=== PATIENT | female | born 1955 | race Caucasian/White ===

== ENCOUNTER → 2017-08-02 | Outpatient (CLI) | payer BC | END | disposition home or self-care (01) | LOC: RESCLI 02:30 | DX: F41.9 Anxiety disorder, unspecified (principal); E78.5 Hyperlipidemia, unspecified; E55.9 Vitamin D deficiency, unspecified; Z72.0 Tobacco use; Z71.6 Tobacco abuse counseling ==

== ENCOUNTER → 2017-08-30 | Outpatient (CLI) | payer BC | END | disposition home or self-care (01) | LOC: MAMMO 01:37 | DX: Z12.31 Encounter for screening mammogram for malignant neoplasm of breast (principal) ==

== ENCOUNTER → 2018-10-04 | Outpatient (CLI) | payer BC ==
[2018-10-04 17:00] LABS: ALBUMIN 3.8 gm/dl (3.1-4.5); ALKALINE PHOSPHATASE 117 U/L (45-117); BUN 12 mg/dl (7-24); CHLORIDE 106 mmol/L (98-107); CHOLESTEROL 235 mg/dL (<200); CREATININE 0.77 mg/dL (0.55-1.02); HDL CHOLESTEROL 36 mg/dl (40-60); LDL CHOLESTEROL 163 mg/dL (9-159); POTASSIUM 4.2 mmol/L (3.5-5.1); SGOT/AST 24 IU/L (3-35); SGPT/ALT 35 U/L (12-78); SODIUM 140 mmol/L (136-145); TOTAL PROTEIN 7.7 gm/dL (6.4-8.2); TRIGLYCERIDES 178 mg/dl (<150); VLDL CHOLESTEROL 36 mg/dL (6-40)
== END | disposition home or self-care (01) ==
LOC: LAB 15:54
PROVIDERS: Family Medicine
DX: E78.5 Hyperlipidemia, unspecified (principal); E55.9 Vitamin D deficiency, unspecified

== ENCOUNTER 2018-12-21 14:41 | Inpatient (IN) | payer BC, MEDICARE ==
[2018-12-21] VITALS (17 sets, daily range): BP systolic 70–102; BP diastolic 0–64
[~2018-12-21] VITALS: Ht 165.1 cm; Wt 59.4 kg
--- NOTE | ~2018-12-21 | EKG ---
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
--- NOTE | ~2018-12-21 | PR ---
[place], [place] PROGRESS NOTE NAME: LAURYN SOLITARIO UNIT #: [id number] ROOM: [facility] DOCTOR: SAROJ HERNANDEZ MD,[place] BIRTHDATE: [birth year] DOS: 12/26/2018 SUBJECTIVE: The patient remains on the mechanical ventilator at this time, continued on all of the previous setting of mechanical ventilator with no changes. The patient is continued on NG tube, which is placed on hold for bronchoscopy planned to be done today in the surgery. The patient has been noted with increase of creatinine at this time. The patient has been given diuretics. The patient has not been noted any symptoms of fever or chills. She was successfully intubated and started on mechanical ventilation. Mild hypertension was noted, which was corrected with use of fluid and other intervention. The temperature of the patient has been noted to be in normal range. She has been receiving broad-spectrum intravenous antibiotic including antiviral therapy. OBJECTIVE: VITAL SIGNS: Blood pressure of 120/62 to 105/62. The respiratory rate was recorded as 32-18. Heart rate of 80-90. Intake 700 mL, output 1600 mL, negative 900 mL. The pulse oxygen saturation was recorded as 99% saturation on 35% oxygen, which was gradually decreased after intubation from 60% to 35% with change in mechanical ventilation. HEENT: Currently, the patient is intubated. Head was atraumatic. Eyes nonicterus. NECK: Supple. CARDIOVASCULAR: S1 and S2 audible. LUNGS: The patient was noted without any wheezing. Scattered crackles of the lungs. ABDOMEN: Soft, nontender. Bowel sounds present. EXTREMITIES: Noted without any acute edema. MUSCULOSKELETAL: The patient was noted without any acute deformities. CENTRAL NERVOUS SYSTEM: Cranial nerves for the patient cannot be examined. Mental status with sedation vacation. LABORATORY AND DIAGNOSTIC DATA: Urine for Legionella antigen reported as positive this morning, which was sent on 12/21/2018. CBC that was done on 12/26/2018, WBC 12.8, hemoglobin 9.5, hematocrit 28.3, platelet count 277,000. Arterial blood gas this morning on 35% oxygen, pH of 7.47, pCO2 38, pO2 83. CMP this morning, creatinine is elevated at 1.72, BUN 27, potassium of 2.9. AST was noted abnormal, ALT normal, alkaline phosphatase 150. CBC this morning, WBC count 12.8, hemoglobin 9.5, hematocrit 28.3, platelet count normal. Phosphorus level was noted 3.0 today. The chest x-ray that was done this morning was reviewed. Bilateral diffuse pulmonary infiltration noted. Endotracheal tube is in proper position. NG tube is in the stomach. Infiltration appeared to be interstitial, more at this time. Multi-lumen catheter is in place. IMPRESSION: 1. The patient with continued acute pneumonia, which could be considered at this time as Legionella pneumonia. 2. Acute kidney injury secondary to intravascular volume depletion and hypotension with diuretics. 3. The patient with abnormal LFTs related to Legionella infection. [place], [place] PROGRESS NOTE NAME: LAURYN SOLITARIO UNIT #: [id number] ROOM: [facility] DOCTOR: SAROJ HERNANDEZ MD,[place] BIRTHDATE: [birth year] 4. Severe acute hypoxemic respiratory failure secondary to acute pneumonia. 6. Consideration for protein-calorie malnutrition. PLAN OF MANAGEMENT: The patient will be continued primarily on Levaquin at this time. Discontinue all the antibiotics including antiviral therapy. Monitor kidney function closely. Hypotension is managed with use of norepinephrine and intravenous fluid will be also given. Bronchodilator with other treatment therapy and plan of management as well. Supportive therapy, plan of management, other care plan, and additional treatment changes will be made based on progression of the illness. Proceed with fiberoptic bronchoscopy as planned. Usual care. Total time in pulmonary critical evaluation and management was 38 minutes. ENRICO KYLE MD CM:PNTRANS [phone] ENRICO HERNANDEZ MD 12/27/18 0158 interface
--- NOTE | ~2018-12-21 | PR ---
[place], [place] PROGRESS NOTE NAME: LAURYN SOLITARIO UNIT #: [id number] ROOM: 529 DOCTOR: SAROJ HERNANDEZ MD,[place] BIRTHDATE: [birth year] DOS: 01/02/2019 PULMONARY PROGRESS NOTE SUBJECTIVE: The patient continued to do very well for the current medical management. Transfer to telemetry floor from the intensive care unit. The cough has been noted [id number] with small amount of sputum expectoration. There were no symptoms of chest pain. The weakness and fatigue has been noted gradually decreased. Denies any symptoms of chest pain, fever or chills. The patient has been noted with good appetite. Denies symptoms of headache or diplopia. Denies symptoms of nausea, vomiting, diarrhea, or abdominal pain. Denies any symptoms of hematemesis or melena. The remaining systems were reviewed. They were noted all negative. OBJECTIVE: VITAL SIGNS: For the patient, which have recorded as a normal temperature, respiratory rate 20, heart rate 87, blood pressure 134/52-113/47. The pulse oxygen saturation recorded as 98% saturation on 2 liters nasal cannula. HEENT: Examination shows head was atraumatic. Eyes nonicterus. NECK: Supple. CARDIOVASCULAR: S1, S2 audible. LUNGS: Noted to have crackles mainly noted in the lower lung base. There was no wheezing. ABDOMEN: Soft, nontender. Bowel sounds present. EXTREMITIES: Noted without any acute edema. MUSCULOSKELETAL: Noted without any acute deformities. CENTRAL NERVOUS SYSTEM: Cranial nerves 2-12 intact. LABORATORY DATA: CMP that was done this morning, BUN 44, creatinine 2.63. Albumin 2.1. CBC that was done on 01/02/2019, WBC count 12.5, hemoglobin 8.1, hematocrit 26.1, and platelet count was normal. The chest x-ray that was done this morning was reviewed shows continued improving in aeration of the lungs and consolidation in the lungs, especially in the right lower lobe. Very small pleural fluid noted at the present time. Mild increased pulmonary venous congestion marking was noted. The patient had ultrasound of the kidney also performed on01/02/2019 that has reported a benign cyst in the left kidney. There was no hydronephrosis or other acute abnormalities. IMPRESSION: 1. The patient has been currently noted resolving acute Legionella pneumonia. 2. Acute small bilateral pleural fluid secondary to current acute injury. 3. Severe debility, still persisted, but improving gradually. 4. Resolution of abnormal LFTs, related acute Legionnaires' disease. 5. Acute kidney injury seemed to be stabilizing at the present time. PLAN OF MANAGEMENT: Physical therapy, occupation therapy, oxygen supplementation. Monitor kidney functions. Upon clearance for the kidney function stability the patient could be assessed for home discharge with oxygen supplementation. Pleural fluid noted with a small, but not require any acute intervention at this time and should resolve with improvement in kidney injury [place], [place] PROGRESS NOTE NAME: LAURYN SOLITARIO UNIT #: [id number] ROOM: 529 DOCTOR: SAROJ HERNANDEZ MD,[place] BIRTHDATE: [birth year] illness. ENRICO KYLE MD CM:PNTRANS [phone] ENRICO HERNANDEZ MD 01/15/19 0841 interface
--- NOTE | ~2018-12-21 | PR ---
[place], [place] PROGRESS NOTE NAME: LAURYN SOLITARIO UNIT #: [id number] ROOM: 529 DOCTOR: SAROJ HERNANDEZ MD,[place] BIRTHDATE: [birth year] DOS: 12/31/2018 PULMONARY PROGRESS NOTE SUBJECTIVE: The patient is noted comfortable at this time, resting on the bed, noted wit much more improvement in the overall respiratory status and mental status. She has not been reported with symptoms of fever, chills, or chest pain. Denies symptoms of nausea, vomiting, or diarrhea. She has been using the BiPAP as ordered this morning, using oxygen supplementation 4 liters nasal cannula. The remaining system review noted all negative. OBJECTIVE: VITAL SIGNS: Temperature normal, respiratory rate of 14, heart rate 90, blood pressure 107/59. The heart rate initially noted as 105, currently noted as 90. The pulse oxygen saturation recorded on 4 liters nasal cannula as 96% saturation. Intake of 1150, and output 1250 mL. HEENT: Examination shows head is atraumatic. Eyes nonicterus. NECK: Supple. CARDIOVASCULAR: S1 and S2 audible. LUNGS: Noted with mild scattered expiratory crackles. There is no wheezing. ABDOMEN: Soft, nontender. Bowel sounds are present. EXTREMITIES: No acute edema. MUSCULOSKELETAL: Without acute deformities. CENTRAL NERVOUS SYSTEM: Intact. LABORATORY DATA: CMP this morning: BUN 51, creatinine 2.60. Remaining electrolytes are normal. Albumin is 2.0. CBC that was done this morning - normal WBC count, hemoglobin 8, hematocrit 24.2, and platelet count of 240,000. IMPRESSION: The patient who has been currently noted with: 1. Resolving acute Legionella pneumonia. 2. Abnormal LFTs, secondary to Legionella pneumonia. 3. Improving mental status. 4. Resolving acute/severe hypoxic respiratory failure as well progressively. 5. The patient with protein-calorie malnutrition status as well with hypoalbuminemia. 6. Overall severe debility, secondary to current acute illness. PLAN OF MANAGEMENT: Continuation of current plan of management, antibiotics, bronchodilators, oxygen supplementation. BiPAP could be used p.r.n., oxygen supplementation to continue to maintain pulse ox 92% or greater. Other supportive therapy plan of management. Additional treatment changes will be made based on progression of the illness. Physical therapy could be assessed. [place], [place] PROGRESS NOTE NAME: LAURYN SOLITARIO UNIT #: [id number] ROOM: 529 DOCTOR: ENRICO PHAN MD BIRTHDATE: [birth year] ENRICO KYLE MD CM:PNANDIE [phone] ENRICO HERNANDEZ MD 01/15/19 0839 interface
--- NOTE | ~2018-12-21 | PROC NOTE ---
[place], [place] PROCEDURE NOTE NAME: LAURYN SOLITARIO UNIT #: [id number] ROOM: 529 DOCTOR: SAROJ HERNANDEZ MD,[place] BIRTHDATE: [birth year] DOS: 12/26/2018 BRONCHOSCOPY PREOPERATIVE DIAGNOSIS: Bilateral pulmonary infiltration. POSTOPERATIVE DIAGNOSES: Removal of the moderate amount of mucoid secretion with some bilious secretion from the endobronchial tree subsegments bilaterally. Low riding endotracheal tube was also noted. The endotracheal tube was corrected. PROCEDURE DESCRIPTION: Informed consent obtained from the patient's family members. The patient with continuous sedation. The patient was given general anesthesia for the procedure. The video fiberoptic bronchoscopy advanced into the endotracheal tube, lower part of trachea, which was at the priscilla level. It was adjusted. Right upper, right middle, right lower, left upper, lingular lobe bronchi were noted. Moderate amount of mucoid secretion noted with some purulent secretions suctioned out at priscilla level bilaterally. No endobronchial obstructive lesions. Procedure well tolerated by the patient without any difficulty. Postoperative findings were discussed with the patient's in detail. No changes in the treatment at this time would be necessary. ENRICO KYLE MD CM:PROCNOTE:PROCEDURE NOTE [phone] ENRICO HERNANDEZ MD
--- NOTE | ~2018-12-21 | PR ---
[place], [place] PROGRESS NOTE NAME: LAURYN SOLITARIO UNIT #: [id number] ROOM: [facility] DOCTOR: SAROJ HERNANDEZ MD,[place] BIRTHDATE: [birth year] DOS: 12/27/2018 PULMONARY CRITICAL CARE EVALUATION AND MANAGEMENT SUBJECTIVE: The patient may need mechanical ventilator, had bronchoscopy done yesterday. She has not been noted any acute hemodynamic instability at this time, remains on the mechanical ventilator. The patient has been currently treated for acute Legionella pneumonia. She had developed acute kidney injury due to diuretic, which were discontinued yesterday. She has been noted with acute hemodynamic instability at this time. Mechanical ventilator setting for the patient essentially remains unchanged as well. OBJECTIVE: VITAL SIGNS: For the patient which were recorded showed normal temperature, respiratory rate of 34. Still noted tachypnea at time. Heart rate of 91-90. The blood pressure of 105/61-112/68. Pulse oxygen saturation recorded as 100% on 35% oxygen. HEENT: Examination shows head was atraumatic. Eyes nonicterus. NECK: Supple. The patient remained orally intubated. NG tube is in place. CARDIOVASCULAR: S1, S2 is audible. LUNGS: The patient was noted with moderate decreased breath sounds. There was no wheezing or crackles at the present time. ABDOMEN: Soft, flat, nontender, bowel sounds present. EXTREMITIES: No edema. MUSCULOSKELETAL: Without acute deformities. SKIN: Visible skin, no lesions or rashes. CENTRAL NERVOUS SYSTEM: The patient without any gross focal neurologic deficit and mental status of the patient was noted normal with reduction of sedation. LABORATORY DATA: CBC: WBC count 9.4. Hemoglobin of 9.0, hematocrit 27.5, platelet count 262,000. Urine for Legionella antigen was noted positive yesterday. Arterial blood gas this morning, assist control, volume control, 35% oxygen, pH of 7.40, pCO2 of 41, pO2 of 99.4. Cultures of the endotracheal aspirate of the patient was noted as normal erik preliminary final cultures are pending. Gram stain, moderate white blood cell, few epithelial cells, no microorganisms. Respiratory virus panel was noted as negative limited testing from 12/22/2018, which were taken. Urinalysis noted as random sodium of 18. Blood cultures, no bacterial growth. Chest x-ray that was done this morning shows endotracheal tube was in place. Multilumen catheter in place. Improvement in aeration of the lungs was continued. BMP this morning as BUN 37, creatinine 2.16. Glucose 119. Phosphorus of 5.0. CBC of the patient this morning, WBC count of 9.4, hemoglobin 9, hematocrit 27.5, platelet count 262,000. IMPRESSION: 1. Acute respiratory failure. The patient with acute Legionella pneumonia, respiratory failure noted acute hypoxemic respiratory failure secondary to pneumonia. 2. Fluid overload, resolved. 3. The patient with acute kidney injury secondary to intravascular volume [place], [place] PROGRESS NOTE NAME: LAURYN SOLITARIO UNIT #: [id number] ROOM: [facility] DOCTOR: SAROJ HERNANDEZ MD,[place] BIRTHDATE: [birth year] depletion possibility of acute tubular necrosis or interstitial nephritis has been considered at this time. 4. Tachypnea was still noted intermittently. 5. Hyperphosphatemia is related to the potassium, phosphorus supplementation and acute kidney injury combination. PLAN OF MANAGEMENT: Titrate oxygen supplementation, maintain pulse ox 92% or greater. Continue on ventilator bundle management. Adjust the antibiotic according to kidney function with the Levaquin for this patient's current acute kidney injury. Monitor acute kidney injury closely. The urinary output was noted as adequate 1500 mL in the last 24 hours. Nonoliguric renal failure noted. Continue sedation intravenous Diprivan and Versed. Today, the patient was not noted to be a candidate may be assessed tomorrow for the weaning depending on further order stability of ongoing multiple medical problems including respiratory failure and pneumonia. Total time in Pulmonary and Critical Care Evaluation management was 34 minutes. ENRICO KYLE MD CM:PNTRANS [phone] ENRICO HERNANDEZ MD 12/27/18 1950 interface
--- NOTE | ~2018-12-21 | PR ---
[place], [place] PROGRESS NOTE NAME: LAURYN SOLITARIO UNIT #: [id number] ROOM: 529 DOCTOR: ENRICO PHAN MD BIRTHDATE: [birth year] DOS: 01/03/2019 PULMONARY PROGRESS NOTE SUBJECTIVE: The patient is noted comfortable at this time, resting on the bed, not noted any use of oxygen. There were no symptoms of chest pain, fever or chills. There were no symptoms of significant cough. OBJECTIVE: VITAL SIGNS: Normal temperature, respiratory rate 20, heart rate 91, blood pressure 110/50. The pulse oxygen saturation was recorded as 96% saturation on 2 liters. HEENT: Shows head was atraumatic, eyes nonicterus. NECK: Supple. CARDIOVASCULAR: S1 and S2 audible. LUNGS: Decreased breath sounds. Crackles were noted coarse in both portion of the lungs. ABDOMEN: Soft, nontender, bowel sounds present. LABORATORY DATA: BMP today, BUN 42, creatinine 2.60. CBC: Normal WBC count, hemoglobin 8.4, normal platelet count. IMPRESSION: 1. The patient with bilateral pleural fluid with resolving acute Legionella pneumonia infiltration and some pleural fluid noted yesterday on chest x-ray. 2. Resolution of acute severe hypoxemic respiratory failure, progressive with acute Legionella pneumonia. 3. Acute kidney injury. PLAN OF TREATMENT: The patient was recommended home discharge if clearance will be obtained from the Nephrology Services standpoint. The patient was suggested postdischarge to reassess. Antibiotic per Infectious Disease Services recommendation. [place], [place] PROGRESS NOTE NAME: LAURYN SOLITARIO UNIT #: [id number] ROOM: 529 DOCTOR: ENRICO PHAN MD BIRTHDATE: [birth year] ENRICO KYLE MD CM:PNTRANS [phone] ENRICO HERNANDEZ MD 01/04/19 0136 interface
--- NOTE | ~2018-12-21 | CON ---
[place], [place] REPORT OF CONSULTATION NAME: LAURYN SOLITARIO UNIT #: [id number] ROOM: 529 DOCTOR: SAROJ HERNANDEZ MDENRICO BIRTHDATE: [birth year] DOS: 12/23/2018 PULMONARY CRITICAL CARE EVALUATION, MANAGEMENT AND CONSULTATION REASON FOR CONSULTATION: Acute respiratory failure with acute pneumonia. HISTORY OF PRESENT ILLNESS: A 63-year-old white female patient, unable to give me history accurately with current use of BiPAP. The history was obtained significantly from the patient's . The patient's stated they have been traveling from [place]. They came home last Tuesday. The patient started with GI symptoms as they were staying in [place]. She has been reported symptoms of headache, vomiting, and diarrhea. The symptoms were noted gradually worsening. Later, as the patient came home, she developed symptoms of increased coughing, shortness of breath and temperature up to 102 degrees Fahrenheit at home. The symptoms were noted progressively worsening, requiring assessment in the Emergency Room. The patient has been assessed in the Emergency Room and further investigations were done. The patient was diagnosed with acute pneumonia. She also was noted with hypotension with sepsis, which has been treated with 8 liters of fluid so far and vasopressor therapy was also given. The vasopressor therapy has been decreased, was continued on 1 mcg/kg body weight from yesterday evening. This morning, the patient appeared to be awake. She was noted with increased oxygen requirement with chest congestion. Has been ordered Lasix 40 mg today resulting in marked diuresis in the last couple of hours. The patient's respiratory status after initial improvement per was noted worse. Temperature curve was noted up to 103 degree Fahrenheit, currently noted at 99.8 degrees Fahrenheit. REVIEW OF SYSTEMS: CONSTITUTIONAL: Limited; however, the patient reported symptoms of fatigue, tiredness, symptoms of fever and chills. EYES: Denies any burning, redness, or tenderness. EARS, NOSE, AND THROAT SYMPTOMS: Denies sore throat, hoarseness, otalgia, postnasal drainage or epistaxis. CARDIOVASCULAR: Denies anginal pain, edema, or pain of the lower extremities. GASTROINTESTINAL: Symptoms of nausea and vomiting resolved. There were no symptoms of hematemesis, melena, or hematochezia reported. There were no symptoms of dysphagia. Abnormal weight loss history is stated. GENITOURINARY: Denies dysuria, suprapubic pain, or hematuria. MUSCULOSKELETAL: Denies acute joint pain, redness, tenderness or any deformities. SKIN: No lesions or rashes reported. CENTRAL NERVOUS SYSTEM: General weakness, but there were no focal deficits. Remaining systems were reviewed, they were noted all negative. PAST MEDICAL HISTORY: Reported as: 1. Hyperlipidemia. 2. Chronic heavy nicotine dependence with tobacco cessation in October 2018. 3. History of neurotic depression. 4. Vitamin D deficiency. 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 Tobacco use noted since teenager as one pack of cigarettes per day minimum per with tobacco cessation in October 2018. HOME MEDICATIONS: Listed as: 1. Lipitor 80 mg daily. 2. Prozac 40 mg daily. 3. Vitamin D 50,000 international units daily. CURRENT MEDICATIONS: The current medications which were administered were use of vitamin D, DuoNeb, fluoxetine, Lipitor, Mucinex, Levaquin, vancomycin, IV Rocephin 2 gm daily, and Tamiflu as well. ALLERGIES: No known drug allergies. PHYSICAL EXAMINATION: GENERAL: A 63-year-old female patient, currently noted on BiPAP. Height of 5 feet 5 inches, weight 131 pounds. The BMI patient was noted at 21.7. VITAL SIGNS: T-max up to 103 degrees Fahrenheit, currently noted 99.2 degrees Fahrenheit. Respiratory rate 22-24, heart rate of 89-84, blood pressure 116/65 to 149/74. Pulse oxygen saturation was recorded as 98% saturation on 50%, previously noted on 2 liters nasal cannula at 94% saturation. HEENT: Head was atraumatic. Eyes nonicterus. NECK: Supple. CARDIOVASCULAR: S1 and S2 were audible. LUNGS: Noted scattered crackles of the lungs, especially in the lower lungs noted. There was no wheezing heard. ABDOMEN: Soft, flat, nontender. Bowel sounds present. EXTREMITIES: The patient was noted with mild edema. VISIBLE SKIN: No lesions or rashes. MUSCULOSKELETAL: The patient was noted without any acute deformities. CENTRAL NERVOUS SYSTEM: The patient in general appears to be intact. LABORATORY DATA: CBC on 12/21/2018, WBC count 16.9, hemoglobin and hematocrit normal, platelet count was normal on admission. PT/PTT on admission was normal on 12/21/2018. BUN and creatinine were normal, sodium 128, potassium 3.4, chloride 98. Influenza B nasal washing antigen molecular testing was negative. Troponin 3 sets on 12/21/[address] scan of the head that was done without contrast was reported without any acute intracranial abnormalities. Serum osmolality was noted mildly decreased at 274. The blood culture which was done on 12/21/2018 so far showed no bacterial growth, final culture results are pending. Lactic acid was noted as normal. CBC of this morning, WBC count 15.3, hemoglobin 10.5, platelet count was normal. CMP that was done this morning, BUN 6, creatinine was normal, potassium 3.3, CO2 of 19, albumin of 1.8. Anion gap was noted as 17 on today's findings. Arterial blood gas that was done yesterday, pH of 7.41, pCO2 25, pO2 67 on 40% oxygen, shows severe hypoxemia and well compensated metabolic acidosis. Arterial blood gas this morning on 50% oxygen BiPAP, pH 7.37, pCO2 20, pO2 57. Arterial blood gas showed continued [place], [place] REPORT OF CONSULTATION NAME: LAURYN SOLITARIO UNIT #: [id number] ROOM: 529 DOCTOR: SAROJ HERNANDEZ MD,[facility] BIRTHDATE: [birth year] compensation of metabolic acidosis with severe hypoxemia. RADIOLOGY DATA: The radiology data was also reviewed. The chest x-ray that was done shows a mass-like lesion and consolidation in the right lower lobe. Chest x-ray that was done later on with multi-lumen catheter shows interval development of small pleural fluid. Chest x-ray that was done yesterday shows persistent changes in the lungs with hyperinflation. The chest x-ray this morning shows increased pulmonary venous congestion marking also noted with worsening of the consolidative changes and other abnormalities in the right lower lobe in addition with pleural fluid and infiltration in the right lower lobe would be also considered. IMPRESSION: 1. The patient has been currently admitted to the hospital, noted with acute symptoms of GI tract with hyponatremia. Related to bradycardia with acute pneumonia with differential would be considered. Legionella pneumonia is one of the differential diagnoses. The etiology is certainly to be considered viral and other community-acquired pneumonia. 2. The patient with acute progressive respiratory failure with pulmonary filtration and fluid overload. 3. Persistent metabolic acidosis, most likely related to the current acute sepsis. 4. The patient with suspicion of chronic obstructive pulmonary disease with history of chronic nicotine dependence as well. 5. Rule out any mass lesion in the lower lungs. PLAN OF MANAGEMENT: The patient will be continued on the current antibiotic as ordered including coverage for Legionella pneumonia and viral etiology with influenza infection. Monitor culture results. CT scan of the chest will be ordered for further clear assessment of the extent of pneumonia. Diuresis is to be given and continue to avoid any further use of fluids to prevent fluid overload. Bronchodilators to help mobilize secretion as q.i.d. use of nebulized bronchodilators. Supportive therapy, plan of management, and other care plan as well. In case of worsening of the respiratory status, intubation and mechanical ventilation would be considered. The assessment and management have been discussed with the patient's in detail. We will follow up electrolytes and arterial blood gases with intermittent assessment. Total time for the pulmonary critical care, evaluation, and management was 40 minutes. [place], [place] REPORT OF CONSULTATION NAME: LAURYN SOLITARIO UNIT #: [id number] ROOM: 529 DOCTOR: ENRICO PHAN MD BIRTHDATE: [birth year] ENRICO YKLE MD CM:CONSTR:REPORT OF CONSULTATION [id number] 01/15/19 0823 interface
--- NOTE | ~2018-12-21 | PR ---
[place], [place] PROGRESS NOTE NAME: LAURYN SOLITARIO UNIT #: [id number] ROOM: 529 DOCTOR: SAROJ HERNANDEZ MD,ENRICO BIRTHDATE: [birth year] DOS: 12/24/2018 PULMONARY CRITICAL CARE EVALUATION AND MANAGEMENT SUBJECTIVE: The patient remains in the hospital in the Intensive Care Unit. She remains mostly dependent on BiPAP with removal of the BiPAP to give some oral medications. She was noted with oxygen desaturation to 75%. She has been noted to undergo diuresis yesterday with the use of intravenous Lasix. She has a chest x-ray done this morning and has been ordered additional Lasix at 40 mg this morning and then daily dose as well. The patient has not been reported any symptoms of chest pain. She has been noted mentally awake, follow vocal commands and extremely nervous. She has not been reporting any symptoms of abdominal pain. She has not been noted any symptoms of diarrhea. No symptoms of abdominal pain, hematemesis or melena reported. She denies symptoms of headache or diplopia. Remaining systems were reviewed and noted as negative. PHYSICAL EXAMINATION: VITAL SIGNS: Temperature noted at 101.3 degrees Fahrenheit, rectal temperature, to normal temperature intermittently in the last 24 hours, the temperature was noted yesterday at about 10 p.m. The other vital signs, respiratory rate is between 22-36, heart rate of 99-118, mild sinus tachycardia, blood pressure 100/68 to 138/77, did not require any vasopressors. Intake 23 liters, output 36 and negative fluid balance of 1.31 liters. Pulse oxygen saturation on 65% of BiPAP is 99-95% saturation at the bedside recorded. HEENT: Currently, the patient has BiPAP in place. Head was atraumatic. NECK: Supple. CARDIOVASCULAR: S1 and S2 audible. LUNGS: General reduction in breath sounds. Scattered crackles. There was no wheezing heard. ABDOMEN: Soft, nontender. Bowel sounds are present. EXTREMITIES: The patient was noted with mild edema. VISIBLE SKIN: No lesions or rashes. CENTRAL NERVOUS SYSTEM: Appeared the patient understanding the questions. There were no focal deficits. MUSCULOSKELETAL: Without any acute deformities. DIAGNOSTIC DATA: CBC in the labs today, WBC count 19,000, hemoglobin 10.2, platelet count was normal. Urine culture was noted with no bacterial growth. Arterial blood gas this morning, pH of 7.44, pCO2 30, pO2 56 on 50% oxygen with BiPAP 14/10. The vancomycin trough level was noted 11.1, which is in the low therapeutic range. CMP of the patient this morning, BUN normal, creatinine was normal, potassium mildly decreased at 3.3, phosphorus 2.3, was also noted mildly low, albumin 1.8, total protein of 5.6, AST of 57. CT scan of the chest that was completed yesterday was personally reviewed, shows evidence of large area of consolidation in the lower lungs bilaterally, also involvement of patchy infiltration in other parts of the lung with bilateral pleural effusions and air bronchogram noted. At this time, the finding in the right lower lobe, which was noted on chest x-ray, would be considered pneumonia, other resolution to be monitored to exclude any malignant process or other etiologies. Scattered ground glass opacity noted in the lungs as well. A small lymph node was noted [place], [place] PROGRESS NOTE NAME: LAURYN SOLITAROI UNIT #: [id number] ROOM: 529 DOCTOR: SAROJ HERNANDEZ MD,[facility] BIRTHDATE: [birth year] in the mediastinum. Chest x-ray that was done this morning was reviewed, shows findings of interstitial edema with congestive heart failure, multi-lumen catheter remains in place to the right internal jugular vein in appropriate position. IMPRESSION: 1. The patient has been noted with multilobar pneumonia, currently treated with broad-spectrum intravenous antibiotic, consideration for gram-positive infection or gram-negative infection as well. 2. Possibility of fluid overload with bilateral pleural fluid. 3. The patient with severe acute hypoxemic respiratory failure as well as a result of the pneumonia. 4. The patient with leukocytosis related to current acute infection as well. So far, all the cultures which have been sent, the blood culture from 12/21/2018 reported no bacterial growth. Urine legionella antigen and strep antigen sent as well, remains pending. PLAN OF TREATMENT: The patient will be continued on BiPAP. If the respiratory status of the patient continues to deteriorate, the patient will be recommended intubation and mechanical ventilation. This will be discussed with the patient's , he is not available at this time, the nursing staff tried to get hold of him. If the patient or the family member wishes the patient to transfer to another facility, certainly that could be done as well. I agree with the use of diuretic as well. Management of hyperkalemia resulting from diuresis, has been already supplemented. The patient was also noted with hypophosphatemia, may be related to refeeding syndrome or other etiologies. The patient's antibiotic spectrum has been changed with addition of Zosyn and discontinuation of Rocephin. The patient will continue on vancomycin, Levaquin, Zosyn, and Tamiflu empirically until further culture results become available. Other therapy, plan of management, care plan of treatment. DVT prophylaxis. All the other necessary management for Intensive Care Unit will be continued. Total time in pulmonary critical care evaluation and management for the patient is 37 minutes. [place], [place] PROGRESS NOTE NAME: LAURYN SOLITARIO UNIT #: [id number] ROOM: 529 DOCTOR: ENRICO PHAN MD BIRTHDATE: [birth year] ENRICO KYLE MD CM:PNTRANS [id number] ENRICO HERNANDEZ MD 01/15/19 0829 interface
--- NOTE | ~2018-12-21 | PR ---
[place], [place] PROGRESS NOTE NAME: LAURYN SOLITARIO UNIT #: [id number] ROOM: 529 DOCTOR: ENRICO PHAN MD BIRTHDATE: [birth year] DOS: 01/01/2019 PULMONARY PROGRESS NOTE SUBJECTIVE: The patient continued BiPAP at this time, did not use the BiPAP much at all. Using oxygen supplementation 4 liters nasal cannula, resting comfortably in the bed. General weakness and fatigue was noted. Denies symptoms of fever, chills, coughing or any sputum expectoration. OBJECTIVE: VITAL SIGNS: Normal temperature, respiratory rate 21, heart rate 80, blood pressure of 90/49-97/54. The pulse oxygen saturation of the patient recorded as 90% saturation on 4 liters cannula. HEENT: Head was atraumatic. Eyes nonicterus. NECK: Supple. CARDIOVASCULAR: S1, S2 audible. LUNGS: The patient with decreased breath sounds at lung bases, more on the right than the left. ABDOMEN: Soft, nontender. Bowel sounds present. EXTREMITIES: Without acute edema. LABORATORY DATA: BMP this morning for the patient, BUN 54, creatinine 2.69. CBC: WBC count 11.4, hemoglobin 7.8, hematocrit 24.1. IMPRESSION: 1. Acute Legionella pneumonia for the patient with acute respiratory failure. 2. The patient with acute kidney injury, seemed to be noted relatively stable with minimal change of the creatinine of the patient at the present time in the last 24 hours. 3. Acute severe hypoxic respiratory failure, stable as well. 4. Anemia, most likely chronic disease and current acute illness. PLAN OF MANAGEMENT: Continuation of the antibiotics, bronchodilators, and oxygen supplementation. Monitor kidney functions. Obtain a chest x-ray, PA lateral view tomorrow. Physical therapy was recommended. The patient will be transferred from Intensive Care Unit to medical floor. [place], [place] PROGRESS NOTE NAME: LAURYN SOLITARIO UNIT #: [id number] ROOM: 529 DOCTOR: ENRICO PHAN MD BIRTHDATE: [birth year] ENRICO KYLE MD CM:PNTRANS [id number] ENRICO HERNANDEZ MD 01/02/19 0102 interface
--- NOTE | ~2018-12-21 | PR ---
[place], [place] PROGRESS NOTE NAME: LAURYN SOLITARIO UNIT #: [id number] ROOM: 529 DOCTOR: SAROJ HERNANDEZ MD,ENRICO BIRTHDATE: [birth year] DOS: 12/25/2018 PULMONARY CRITICAL CARE EVALUATION AND MANAGEMENT SUBJECTIVE: The patient remained in the Intensive Care Unit, remains dependent on the BiPAP, could not tolerate any time more than 3 seconds noted with quick oxygen desaturation to 70% oxygen. The oxygen requirement, BiPAP was noted partially decreased. She was noted awake and alert. She has been reported with some cough. Temperature noted to be decreased with a T-max gradually decreased to the T-max only noted 100.7 degree Fahrenheit. Other times, she remains afebrile. She was also given the diuretic as a Lasix. She has been noted good urinary output with that. She denies symptoms of headache or diplopia. Denies symptoms of nausea, vomiting, diarrhea, abdominal pain, hematemesis, melena, or hematochezia. Denies symptoms of hemoptysis. The remaining systems reviewed were noted all negative. OBJECTIVE: VITAL SIGNS: T-max of 100.7 degree Fahrenheit, normal temperature, respiratory rate was 40-38 even with the BiPAP use. Heart rate of 114-93. Blood pressure 119/75-95/55. Intake of 850 mL, output 3400 mL, negative fluid balance of 2.551 liters. Pulse ox saturation 55% oxygen. The BiPAP was 94% saturation at the bedside. HEENT: Noted at this time with some respiratory distress. The patient and tachypnea. She was noted awake and alert, otherwise. HEENT: Head was atraumatic. Eyes nonicterus. CARDIOVASCULAR: S1, S2 audible. LUNGS: Decreased breaths with crackles of the lungs were noted bilaterally. ABDOMEN: Soft, nontender, bowel sounds present. EXTREMITIES: Noted without edema. MUSCULOSKELETAL: Without any acute deformity. CENTRAL NERVOUS SYSTEM: The patient appeared to be intact, moving extremities and she has been asked. LABORATORY DATA: CMP today, BUN normal, creatinine was normal, glucose 96. Potassium 3.2, AST was recorded at 49. Albumin 1.8. CBC, WBC count 16.3, hemoglobin 9.6, hematocrit 27.8, and platelet count was normal. Arterial blood gas this morning, pH of 7.46, pCO2 35, pO2 of only 68. Vancomycin trough level yesterday was noted as 11.1. The chest x-ray that was done yesterday was reviewed, shows bilateral pulmonary infiltration. IMPRESSION: 1. The patient has been noted with persistent severe acute hypoxemic respiratory failure with acute bilateral pneumonia with fluid overload. 2. Excessive work of breathing was noted, respiratory distress and remains BiPAP dependent. 3. Pleural fluid secondary to fluid overload was also noted, as well and the fatigue and debility. 4. Leukocytosis secondary to current acute pneumonia. The etiology of pneumonia at this time, still remains unknown for this patient as the testing, which has been done was assessed with pneumonia. Serology and other remains [place], [place] PROGRESS NOTE NAME: LAURYN SOLITARIO UNIT #: [id number] ROOM: 529 DOCTOR: SAROJ HERNANDEZ MD,[place] BIRTHDATE: [birth year] pending. However, the blood culture reported no bacterial growth so far. PLAN OF MANAGEMENT: Further medical management recommended intubation and mechanical ventilation. Case was discussed with primary care attending. The consent will be obtained from the patient's spouse as well. Supplementation of the electrolytes. The patient has hypokalemia. DVT prophylaxis to be continued. De-escalation of antibiotic based on the results when become available. The patient already monitored by the Infectious disease specialist. Continue current dose of Lasix that might need to be discontinued tomorrow. Monitor chest x-ray intermittently. Other supportive therapy, plan of management and other additional treatment changes will be made based on progression of the illness. Total time in pulmonary critical care evaluation and management was 32 minutes. ENRICO KYLE MD CM:PNTRANS [id number] ENRICO HERNANDEZ MD 01/15/19 0830 interface
--- NOTE | ~2018-12-21 | PR ---
[place], [place] PROGRESS NOTE NAME: LAURYN SOLITARIO UNIT #: [id number] ROOM: 529 DOCTOR: KRIS VILLALPANDONIDHI BIRTHDATE: [birth year] DOS: 12/30/2018 SUBJECTIVE: The patient is being followed for community-acquired pneumonia. Her urine for legionella was positive. She has been having a few loose stools only 1 per day. She was checked for C. diff that has come back negative. She was brought on the and that had no bacterial growth. Blood cultures were sterile. She remains on Levaquin IV, renally dosed every 48 hours. She is alert, more responsive, oriented, feeling better, breathing improving. No nausea or vomiting. Still somewhat poor appetite and generalized weakness. No fevers, no rashes, no pain, some cough, sputum is rust colored. LABORATORY DATA: Cultures as reviewed above. WBC 13.5, platelets 260. BUN 49, creatinine 2.58, AST 90, ALT 79. LFTs are improving. Albumin 2.0. PHYSICAL EXAMINATION: VITAL SIGNS: Temperature 98.3, pulse 101, respirations 26, BP 109/49. GENERAL: A 63-year-old female, in no acute distress. HEAD, EYES, EARS, NOSE AND THROAT: Normocephalic. NECK: Supple. Mucous membranes moist. No thrush. LUNGS: Crackles diminished in the right base. Respirations are even and unlabored. HEART: Regular rhythm. No murmur appreciated. ABDOMEN: Soft, nondistended, positive bowel sounds. EXTREMITIES: No edema or deformity. She has a right IJ, which is dressed. SKIN: Warm, dry, free of rashes. ASSESSMENT: Community-acquired pneumonia with legionella. PLAN: Continue Levaquin. At this point, we could look at changing over to p.o. soon; at which time, she would be able to have a triple lumen catheter removed. ADDENDUM I agree with the assessment and plan made by the nurse practitioner, Nidhi Ponce, reviewed the labs and imaging and made the necessary changes in the note. NIDHI PONCE CNP [place], [place] PROGRESS NOTE NAME: LAURYN SOLITARIO UNIT #: [id number] ROOM: 529 DOCTOR: KRIS VILLALPANDO,JANUARY BIRTHDATE: [birth year] Sylwia Grace MD CM:PNTRANS [id number] JANUARY KRIS VILLALPANDO 01/17/19 1459 interface
--- NOTE | ~2018-12-21 | PR ---
[facility], [place] PROGRESS NOTE NAME: LAURYN SOLITARIO UNIT #: [id number] ROOM: 529 DOCTOR: SAROJ HERNANDEZ MD,ENRICO BIRTHDATE: [birth year] DOS: 12/28/2018 PULMONARY CRITICAL CARE EVALUATION AND MANAGEMENT SUBJECTIVE: The patient remains on mechanical ventilator at this time, resting comfortably, still noted mild tachypnea; however, oxygen requirement has been noted gradually decreased. She has not been noted in any distress. She was noted with hypotension last night, treated with Levophed that has been still continued. She has not been noted with any other problem in the last 24 hours except the BUN and creatinine, still noted elevated. PHYSICAL EXAMINATION: GENERAL: The patient is currently intubated on mechanical ventilator, comfortable, opening her eyes. The patient with reduction of the sedation. She was orally intubated. Orogastric tube is in place. VITAL SIGNS: Normal temperature, 99 degree Fahrenheit, respiratory rate of 24-26, heart rate 78. The blood pressure 112/52-116/56. The lowest blood pressure last night was noted as blood pressure of 89/48. Intake of 3.40 liters. The output was 1.74 liters. Pulse oxygen saturation as 99% saturation on 35% oxygen, mechanical ventilator. HEENT: Examination shows head was atraumatic. Eyes nonicterus. NECK: Supple. CARDIOVASCULAR: S1, S2 is audible. LUNGS: The patient noted with moderate decreased breath sounds bilaterally. There was no wheezing or crackles at the present time. ABDOMEN: Soft, flat, nontender, bowel sounds present. EXTREMITIES: No edema. MUSCULOSKELETAL: Without acute deformities. CENTRAL NERVOUS SYSTEM: The patient's cranial nerves 2-12 intact. LABORATORY DATA: The patient's CBC that was done yesterday, WBC count 10.3, hemoglobin 8.6, hematocrit 27.3, and platelet count 155,000. Arterial blood gas 35% oxygen, pH 7.41, pCO2 of 38, and pO2 of 138. CMP this morning, BUN 44, creatinine was 2.15. Glucose 183. AST and ALT was still noted abnormal. Stool for C. diff toxins were negative on 12/26. The cultures of the bronchial washing has no bacterial growths. The chest x-ray showed improving aeration of the lung noted, gradually and progressively with right lower lobe infiltration, consolidation still seen. Endotracheal tube and NG tube were all noted appropriately placed. The multi-lumen catheter also noted appropriately placed to the right internal jugular venous approach. IMPRESSION: 1. The patient with acute severe hypoxic respiratory failure, with acute Legionella pneumonia. Fluid overload, resolved. 2. Acute kidney injury, secondary to diuretic or intravascular volume depletion, which has been improving gradually with intravenous fluid supplementation. 3. Hypertension related to sepsis. The patient on sedation combination, is currently treated with a low dose of Levophed. [facility], [place] PROGRESS NOTE NAME: LAURYN SOLITARIO UNIT #: [id number] ROOM: 529 DOCTOR: SAROJ HERNANDEZ MD,ENRICO BIRTHDATE: [birth year] PLAN OF TREATMENT: The patient will be started on CPAP 5, pressure support of 10 with complete discontinuation of sedation. Monitor the patient's respiratory status closely with the repeat arterial blood gases. If tolerated with current trial of weaning, she will be considered for liberation of mechanical ventilation. She may or may not require use of the BiPAP post-liberation from mechanical ventilation. In the meantime, continue other therapy, plan of care as in progress. Usual care. Nutrition support will be continued through the NG tube until the patient liberated from mechanical ventilator. Continue all of the ventilator bundle management at this time. Total time in pulmonary critical evaluation and management was 34 minutes. ENRICO KYLE MD CM:PNTRANS [id number] ENRICO HERNANDEZ MD 01/15/19 0834 interface
--- NOTE | ~2018-12-21 | CON ---
[place], [place] REPORT OF CONSULTATION NAME: LAURYN SOLITARIO UNIT #: [id number] ROOM: [facility] DOCTOR: SYLWIA ROUSE MD BIRTHDATE: [birth year] DOS: 12/22/2018 REASON FOR CONSULTATION: Pneumonia. CHIEF COMPLAINT: Fatigue, shortness of breath, nausea, vomiting, diarrhea. HISTORY OF PRESENTING ILLNESS: This is a 63-year-old female who was in a relatively good health and recently visited [place] where she started having headaches accompanied with chills, nausea, vomiting multiple times, followed by diarrhea, not associated with abdominal pain, no bleeding in the stools. However, she continued to have loose stools multiple times and that brought her to the hospital. She was hypotensive, was given fluids, currently on low dose of pressors and a chest x-ray was done that was concerning for right lower lobe infiltrate. Her rapid influenza testing was negative. She continued to have high-grade fevers while she is hospitalized. She has white count of 16.9, which on repeat today is 13.5. Strep and legionella testing has been sent, is in process. She has been started on vancomycin plus Zosyn plus Levaquin. PAST MEDICAL HISTORY: Significant for hyperlipidemia. PAST SURGICAL HISTORY: Includes tonsillectomy. SOCIAL HISTORY: Former smoker, quit smoking in distant past. Nonalcoholic. No illicit drug use. She was recently in the [place] where she ate seafood, no rice, ate potato salad. Nobody else got sick. She visited [place] as well. FAMILY HISTORY: Mother . Father, unknown history. ALLERGIES: No known drug allergies. MEDICATIONS: Reviewed. REVIEW OF SYSTEMS: A 12-point review of systems has been done. Pertinent negative and positive included in HPI, rest are noncontributory. PHYSICAL EXAMINATION: VITAL SIGNS: Current vitals include temperature of 99.7, pulse rate of 84, respiratory rate 22, oxygen saturation 92% on 2 liters of oxygen. GENERAL: The patient is alert, awake, responsive, mild respiratory distress. HEENT: Atraumatic, normocephalic. PERRLA, EOMI. Currently, tongue moist. OROPHARYNX: No oropharyngeal exudate or erythema. LUNGS: Air entry bilaterally equal. No wheeze or crackles. CARDIOVASCULAR: S1, S2 normal. Tachycardic. ABDOMEN: Soft, nontender, nondistended. Bowel sounds present. No guarding or rigidity. EXTREMITIES: No pedal edema. LABORATORY DATA AND IMAGING: Noted and mentioned in HPI. ASSESSMENT: [place], [place] REPORT OF CONSULTATION NAME: LAURYN SOLITARIO UNIT #: [id number] ROOM: [facility] DOCTOR: SYLWIA ROUSE MD BIRTHDATE: [birth year] 1. Post-viral illness. 2. Right lower lobe pneumonia, concerning for community-acquired pneumonia. 3. Dehydration from above. 4. Leukocytosis from sepsis as well as dehydration. PLAN: At this time, it looks like she has developed pneumonia after a post-viral illness. Would keep her on a community-acquired coverage. Continue with the fluids management for dehydration. Discontinue vancomycin and Zosyn. Keep her on ceftriaxone and Levaquin. Levaquin can be discontinued if legionella antigen testing comes back negative. Once she is stable, would expect her to go on community-acquired pneumonia coverage. Her diarrhea, I do not think is C. diff related at this time. Continue with her current management. We will follow the patient closely. Thank you for your consult. Please call for any questions. Sylwia Rouse MD CM:CONSTR:REPORT OF CONSULTATION 1112 12/22/18 1416 interface
--- NOTE | ~2018-12-21 | PR ---
[place], [place] PROGRESS NOTE NAME: LAURYN SOLITARIO UNIT #: [id number] ROOM: [facility] DOCTOR: SAROJ HERNANDEZ MD,ENRICO BIRTHDATE: [birth year] DOS: 12/29/2018 PULMONARY PROGRESS NOTE SUBJECTIVE: The patient was noted comfortable at this time, resting on the bed, but appeared to be quite anxious. She has not been noted any symptoms of fevers, chills, or any acute hemoptysis. The patient has not been noted any symptoms of nausea or vomiting. The patient was successfully liberated from mechanical ventilator yesterday. BiPAP has been used post-liberation from mechanical ventilator. The cough has been decreasing. There were no symptoms of headache or diplopia. She was noted quite anxious with confusional status intermittently also stated by the nursing staff. OBJECTIVE: VITAL SIGNS: Temperature 99.65, normal temperature, respiratory rate of 21-26, heart rate 97-100, blood pressure 123/73 to 160/84. Pulse oxygen saturation was recorded as 95% saturation on 40% oxygen. HEENT: Shows head was atraumatic, eyes nonicterus. NECK: Supple. CARDIOVASCULAR: S1 and S2 audible. LUNGS: Without any crackles or wheezing. Breaths were noted mildly diminished bilaterally. ABDOMEN: Soft, nontender. Bowel sounds present. EXTREMITIES: The patient was noted without any acute edema. MUSCULOSKELETAL: Without any acute deformities. CENTRAL NERVOUS SYSTEM: Cranial nerves 2-12 intact. LABORATORY AND DIAGNOSTIC DATA: CBC today: WBC count 13.7, hemoglobin 8.7, hematocrit 27.2, platelet count 256,000. BMP this morning, BUN 45, creatinine 2.35, glucose normal. LFTs were still noted with mildly abnormal AST and ALT at the present time. The chest x-ray was also done, that was reviewed, and it shows bilateral pleural fluid noted with increased interstitial markings and consolidation in the right lower lobe. IMPRESSION: 1. Acute pneumonia with some fluid overload secondary to acute kidney injury would be considered. 2. The patient with confusion, metabolic in origin. 3. The patient with acute respiratory failure, status post liberation from mechanical ventilation. PLAN OF MANAGEMENT: Continue Nephrology Service's recommendation for the kidney injury management. Monitor respiratory status. Continue the BiPAP as tolerated. Other additional treatment changes will be made for the patient based on the progression of the illness. Continuation of antibiotic based on the acute kidney injury and creatinine clearance. Supportive care, other therapy, plan of management, care plan and treatments. Nutrition support as tolerated. [place], [place] PROGRESS NOTE NAME: LAURYN SOLITARIO UNIT #: [id number] ROOM: [facility] DOCTOR: ENRICO PHAN MD BIRTHDATE: [birth year] ENRICO KYLE MD CM:PNTRANS [id number] ENRICO HERNANDEZ MD 12/30/18 0018 interface
--- NOTE | ~2018-12-21 | PR ---
[place], [place] PROGRESS NOTE NAME: LAURYN SOLITARIO UNIT #: [id number] ROOM: 529 DOCTOR: SAROJ HERNANDEZ MD,ENRICO BIRTHDATE: [birth year] DOS: 12/30/2018 SUBJECTIVE: She was noted comfortable at this time, resting on the bed. She was given Lasix yesterday because of the current fluid overload noted on the chest x-ray and respiratory distress. She has been noted effective diuresis with 40 mg Lasix, which was administered. She has not been noted any acute hemodynamic instability at the present time. This morning, the patient was noted comfortably sitting on the bed, using oxygen supplementation 4 liters nasal cannula using the BiPAP as ordered. The patient denies symptoms of headache or diplopia. General weakness and fatigue was noted. OBJECTIVE: VITAL SIGNS: Normal temperature, respiratory rate 26, heart rate of 101, blood pressure 109/49. The pulse oxygen saturation 4 liters nasal cannula 95% saturation. HEENT: Examination shows head was atraumatic. Eyes nonicterus. NECK: Supple. CARDIOVASCULAR: S1, S2 is audible. LUNGS: No wheeze or crackles. ABDOMEN: Soft, nontender. Bowel sounds are present. EXTREMITIES: No edema. MUSCULOSKELETAL: Without acute deformities. CENTRAL NERVOUS SYSTEM: Cranial nerves 2-12 intact. LABORATORY DATA: Chest x-ray done this morning showed reduction in airway noted, fluid overload, the resolution noted incomplete. Basilar area of infiltration noted greater in the right than the left side. CBC that was done on 12/30/2018: WBC count 13.5, hemoglobin 8.8, hematocrit 27.0, and platelet count 260,000. CMP: BUN 49, creatinine 2.58. AST, ALT continued to improve progressively. IMPRESSION: The patient with gradual and progressive resolution of acute severe hypoxic respiratory failure as a result of acute pneumonia, Legionella, and acute fluid overload most likely secondary to the current acute kidney injury. Overall debility related to the current acute Legionella pneumonia and respiratory failure. PLAN OF MANAGEMENT: Continue use of the BiPAP intermittently during the day, continue at nighttime. Continuation of bronchodilator. Continue antibiotics. Bronchodilators for the patient to be continued. Other additional treatment changes will be ordered based on the progression of her illness. Physical therapy might be beneficial for this patient and could be started at this point. [place], [place] PROGRESS NOTE NAME: LAURYN SOLITARIO UNIT #: [id number] ROOM: 529 DOCTOR: ENRICO PHAN MD BIRTHDATE: [birth year] ENRICO KYLE MD CM:PNTRANS [id number] ENRICO HERNANDEZ MD 01/15/19 0836 interface
--- NOTE | ~2018-12-21 | EKG ---
[place], [place] ELECTROCARDIOGRAM REPORT NAME: LAURYN SOLITARIO UNIT #: [id number] ROOM: [facility] DOCTOR: CARI DRAFT REPORT BIRTHDATE: [birth year] [facility] Test Date: 2018-12-22 Test Time: 14:51:25 Pat Name: LAURYN SOLITARIO Department: Room: [place] [address] Gender: F [employer]: Bruna Long : 1955 Requested By: CRISELDA RODRIGUEZ Order Number: [id number] Reading MD: Zachary Carrillo Measurements Intervals Brandon Rate: 78 P: 49 PA: 141 QRS: 64 QRSD: 90 T: 31 QT: 386 QTc: 440 Interpretive Statements Sinus rhythm Compared to ECG 12/21/2018 14:46:27 No significant changes Electronically Signed On 12-24-2018 11:02:14 PDT by Zachary Carrillo CM:EKGRPT:ELECTROCARDIOGRAM REPORT [id number] CRISELDA POWELL DRAFT REPORT CRISELDA RODRIGUEZ DO
[2018-12-21 15:07] LABS: HEMATOCRIT 36.5 % (37.0-47.0); HEMOGLOBIN 12.6 g/dl (12.0-16.0); MEAN CELL VOLUME 93.1 fl (81.0-99.0); MEAN CORPUSCULAR HGB 32.1 pg (27.0-31.0); MEAN CORPUSCULAR HGB CONC 34.5 g/dl (33.0-37.0); MEAN PLATELET VOLUME 9.8 fl (9.6-12.3); PLATELET COUNT AUTOMATED 160 10*3/uL (130-400); RED BLOOD COUNT 3.92 10*6/uL (4.10-5.10); RED CELL DISTRI WIDTH 13.6 % (0-14.5); WHITE BLOOD COUNT 16.9 10*3/uL (4.8-10.8)
[2018-12-21 15:24] LABS: ACT PARTIAL THROMBO TIME 25.5 SECONDS (20.8-31.5)
[2018-12-21 15:25] LABS: TOTAL CELLS COUNTED 100 #CELLS
[2018-12-21 15:26] LABS: PLATELET SUFFICIENCY NORMAL (NORMAL)
[2018-12-21 15:41] LABS: ALBUMIN 3.1 gm/dl (3.1-4.5); ALKALINE PHOSPHATASE 108 U/L (45-117); BUN 12 mg/dl (7-24); CHLORIDE 94 mmol/L (98-107); CREATININE 0.94 mg/dL (0.55-1.02); POTASSIUM 3.4 mmol/L (3.5-5.1); SGOT/AST 32 IU/L (3-35); SGPT/ALT 41 U/L (12-78); SODIUM 128 mmol/L (136-145)
[2018-12-21 15:47] LABS: TROPONIN I < 0.015 ng/ml (<0.045)
--- NOTE | 2018-12-21 18:23 | NUR ---
A 63, admitted to [facility], under the services of CRISELDA Ding DO with a diagnosis of PNEUMONIA. Chief complaint is N/V/D X4 DAYS THEN THIS AM DEVELOPED SOB & CHEST PAIN. Patient arrived via stretcher from ER. Monitor applied. Initial assessment completed. Vital signs taken and recorded. CRISELDA DING DO notified of admission to the unit. Orders received. See assessment for past medical history, medications and allergies. Patient and/or family oriented to unit. [facility] visitation policy reviewed. JANICE CA
[2018-12-21] MEDS ORDERED: FLUOXETINE40 MG PO (18:30)
--- NOTE | 2018-12-21 18:30 | NUR ---
[facility] CALLED BUT THEY HAVE ONLY FILLED 1 PRESCRIPTION RECENTLY. MAIL-ORDER FOR THE REST - WILL SPEAK WITH
[2018-12-21] MEDS ORDERED: CHOLESTEROL MED (19:03)
[2018-12-21] MEDS ORDERED: VITAMIN D50000 UNIT PO (19:04)
[2018-12-21] MEDS ORDERED: ATORVASTATIN CA80 M1 PO (19:30)
--- NOTE | 2018-12-21 20:00 | NUR ---
PATIENT AWAKE ALERT AND ORIENTED. C/O CHILLING. TEMPERATURE 104.5/T. BLOOD PRESSURE 76/48 MANUALLY. AT BEDSIDE. NEW ORDER RECEIVED FOR TYLENOL SUPP AND IVF BOLUS. PATIENT ALSO PLACED ON A COOLING BLANKET.
[2018-12-21 20:57] LABS: BUN 10 mg/dl (7-24); CHLORIDE 103 mmol/L (98-107); CREATININE 0.72 mg/dL (0.55-1.02); POTASSIUM 3.2 mmol/L (3.5-5.1); SODIUM 134 mmol/L (136-145)
--- NOTE | 2018-12-21 21:15 | NUR ---
70/0 MANUALLY WITH DOPPLER. AT BEDSIDE. DISCUSSED MLC INSERTION AND STARTING LEVOPHED GTT.
--- NOTE | 2018-12-21 21:45 | NUR ---
INSERTED MLC IN RIJ. CONSENT SIGNED.
[2018-12-21 23:17] LABS: BILIRUBIN NEGATIVE (NEGATIVE); BLOOD TRACE-INTACT (NEGATIVE); CLARITY CLEAR (CLEAR); COLOR YELLOW (YELLOW); GLUCOSE NEGATIVE (NEGATIVE); KETONE 1+ (NEGATIVE); LEUKO ESTERASE NEGATIVE (NEGATIVE); NITRITE NEGATIVE (NEGATIVE); SPECIFIC GRAVITY 1.025 (1.005-1.030); UROBILINOGEN 0.2 E.U./dl (0.2-1.0)
[2018-12-21 23:25] LABS: URINE CREATININE RANDOM 89.8 mg/dL
[2018-12-21 23:33] LABS: BACTERIA 4+; MUCOUS TRACE; WBC 0-2 wbc/hpf (0-5)
[2018-12-22] VITALS (94 sets, daily range): BP systolic 82–135; BP diastolic 40–93
--- NOTE | 2018-12-22 04:45 | NUR ---
PATIENT TEMPERATURE 102.2/CP. MEDICATED WITH TYLENOL PER PRN ORDER. WILL CONTINUE TO MONITOR.
[2018-12-22 06:14] LABS: BASO % 0.1 % (0.0-1.0); LYMPH # 0.6 10*3/uL (1.3-4.4); LYMPH % 4.1 % (27.0-41.0); MEAN CELL VOLUME 94.5 fl (81.0-99.0); MEAN CORPUSCULAR HGB 31.4 pg (27.0-31.0); MEAN CORPUSCULAR HGB CONC 33.2 g/dl (33.0-37.0); MEAN PLATELET VOLUME 9.6 fl (9.6-12.3); MONO # 0.7 10*3/uL (0.1-1.0); MONO % 5.4 % (3.0-9.0); NEUT # 12.1 10*3/uL (2.3-7.9); NEUT % 89.9 % (47.0-73.0); PLATELET COUNT AUTOMATED 140 10*3/uL (130-400); RED BLOOD COUNT 3.28 10*6/uL (4.10-5.10); RED CELL DISTRI WIDTH 13.4 % (0-14.5); WHITE BLOOD COUNT 13.5 10*3/uL (4.8-10.8)
[2018-12-22 06:27] LABS: HEMOGLOBIN 10.3 g/dl (12.0-16.0)
[2018-12-22 06:48] LABS: INTERNATIONAL NORM RATIO 1.1 (2.0-3.5)
[2018-12-22 06:49] LABS: CHLORIDE 107 mmol/L (98-107); POTASSIUM 3.6 mmol/L (3.5-5.1); SODIUM 134 mmol/L (136-145)
[2018-12-22 06:56] LABS: ALBUMIN 2.3 gm/dl (3.1-4.5); ALKALINE PHOSPHATASE 93 U/L (45-117); BUN 9 mg/dl (7-24); CHOLESTEROL 101 mg/dL (<200); CREATININE 0.63 mg/dL (0.55-1.02); FREE T4 1.23 ng/dl (0.76-1.46); HDL CHOLESTEROL 28 mg/dl (40-60); LDL CHOLESTEROL 59 mg/dL (9-159); PHOSPHOROUS 1.6 mg/dL (2.5-4.9); SGOT/AST 53 IU/L (3-35); SGPT/ALT 48 U/L (12-78); TOTAL PROTEIN 5.7 gm/dL (6.4-8.2); TRIGLYCERIDES 72 mg/dl (<150); VLDL CHOLESTEROL 14 mg/dL (6-40)
--- NOTE | 2018-12-22 07:45 | NUR ---
RESTING IN BED. DENIES ANY COMPLAINTS. RECTAL TEMP 98.4. COOLING BLANKET PLACED ON MONITOR MODE. PULSE OX 99% ON 2L NASAL CANNULA. LEVOPHED GTT INFUSING AT 3 KESHA'S/HR VIA RIJ. NO EDEMA NOTED. RALES HEARD IN LEFT POSTERIOR BASES.
--- NOTE | 2018-12-22 07:50 | NUR ---
PHYSICAL THERAPY Nursing screen received. PT too acutely ill for PT at this time. Thank you. Payal New,PT
[2018-12-22 08:00] LABS: VITAMIN D, 25-HYDROXY 38.5 ng/mL (30-100)
--- NOTE | 2018-12-22 08:30 | NUR ---
Continuity Coordinator in to see patient. There are multiple staff in the room. Will follow up at a later time.
--- NOTE | 2018-12-22 09:33 | NUR ---
INFECTIOUS DISEASE NOTIFIED OF CONSULT
--- NOTE | 2018-12-22 12:00 | NUR ---
PATIENT HAD A FEVER TEMPEERATURE 102 MEDICATED WITH TYLENOL ORDERED. COOLING BLANKET APPLIED ALFONSO CABRALES OVCT SN KAILASH VAIL BSN CLINICAL INSTRUCTOR
--- NOTE | 2018-12-22 14:00 | NUR ---
PATIENTS TEMPERATURE RETAKEN 98. TYLENOL EFFECTIVE FOR FEVER. REMOVED COOLING BLANKET PATIENTS REQUEST. ALFONSO CABRALES OVCT SN KAILASH AGGARWALN, CLINICAL INSTRUCTOR HAR[place]CT
--- NOTE | 2018-12-22 14:30 | NUR ---
Installations Inspector in to see patient. Staff is currently in the room. Will follow up at a later time. Discharge undecided.
--- NOTE | 2018-12-22 18:45 | NUR ---
PATIENT C/O SHORTNESS OF BREATH. POX 80% ON 2LNC. INCREASED O2. TEMPERATURE 103.5/T. MEDICATED WITH TYLENOL PER PRN ORDER. LEVOPHED AT 2MIC. NS INFUSING AT 100CC/HR. MOIST NON-PRODUCTIVE COUGH NOTED. CRACKLES NOTED TO RIGHT BASE. PATIENT PLACED ON COOLING BLANKET AGAIN AT THIS TIME. CALLED .
--- NOTE | 2018-12-22 18:50 | NUR ---
DR COLEMAN HERE - STAT ABGS BEING DRAWN
[2018-12-22 18:54] LABS: ABG HCO3 15.4 mmol/l (22-26); ABG O2 SATURATION 90.9 % (95-97); ARTERIAL BLOOD GAS PCO2 25.2 mmHg (35-45); ARTERIAL BLOOD GAS PH 7.416 (7.35-7.45); ARTERIAL BLOOD GAS PO2 67.8 mmHg (80-90)
[2018-12-22 18:56] LABS: ABG BASE EXCESS -6.7 mmol/L (-2.0-2.0)
--- NOTE | 2018-12-22 20:05 | NUR ---
NOTIFIED OF NEW CONSULT ORDER.
[2018-12-23] VITALS (48 sets, daily range): BP systolic 98–150; BP diastolic 54–107
[2018-12-23 06:10] LABS: BASO % 0.2 % (0.0-1.0); EOS % 0.2 % (1.0-4.0); HEMATOCRIT 31.4 % (37.0-47.0); HEMOGLOBIN 10.5 g/dl (12.0-16.0); LYMPH # 0.7 10*3/uL (1.3-4.4); LYMPH % 4.5 % (27.0-41.0); MEAN CELL VOLUME 93.7 fl (81.0-99.0); MEAN CORPUSCULAR HGB 31.3 pg (27.0-31.0); MEAN CORPUSCULAR HGB CONC 33.4 g/dl (33.0-37.0); MEAN PLATELET VOLUME 10.2 fl (9.6-12.3); MONO # 0.8 10*3/uL (0.1-1.0); NEUT # 13.7 10*3/uL (2.3-7.9); NEUT % 89.6 % (47.0-73.0); PLATELET COUNT AUTOMATED 150 10*3/uL (130-400); RED BLOOD COUNT 3.35 10*6/uL (4.10-5.10); RED CELL DISTRI WIDTH 13.7 % (0-14.5); WHITE BLOOD COUNT 15.3 10*3/uL (4.8-10.8)
[2018-12-23 06:11] LABS: ALBUMIN 1.8 gm/dl (3.1-4.5); ALKALINE PHOSPHATASE 98 U/L (45-117); BUN 6 mg/dl (7-24); CHLORIDE 110 mmol/L (98-107); CREATININE 0.51 mg/dL (0.55-1.02); POTASSIUM 3.3 mmol/L (3.5-5.1); SGOT/AST 68 IU/L (3-35); SGPT/ALT 56 U/L (12-78); SODIUM 140 mmol/L (136-145); TOTAL PROTEIN 5.5 gm/dL (6.4-8.2)
[2018-12-23 09:07] LABS: ABG HCO3 16.1 mmol/l (22-26); ABG O2 SATURATION 90.4 % (95-97); ARTERIAL BLOOD GAS PCO2 28.5 mmHg (35-45); ARTERIAL BLOOD GAS PH 7.375 (7.35-7.45); ARTERIAL BLOOD GAS PO2 57.5 mmHg (80-90)
[2018-12-23 09:08] LABS: ABG BASE EXCESS -7.3 mmol/L (-2.0-2.0)
--- NOTE | 2018-12-23 10:00 | NUR ---
#16 COOK CATHETER INSERTED PER POLICY TOLERATED WELL/SECURE CATH TO LEFT THIGH, CLEAR YELLOW URINE OBTAIN NOLAN OMALLEY OVCT SN/KAILASH VAIL BSN CLINICAL INSTRUCTOR
--- NOTE | 2018-12-23 10:41 | NUR ---
MESSAGE LEFT ON DR KYLE'S PHONE TO CALL BACK R/T PT CONDITION,ABG RESULTS AND PLAN OF CARE.
--- NOTE | 2018-12-23 10:52 | NUR ---
UPDATED DR KYLE ON PT'S CONDITION AND LAB RESULTS. NEW ORDERS RECEIVED FOR BIPAP AND STAT LACTIC ACID.
--- NOTE | 2018-12-23 11:24 | NUR ---
PT'S , DAVID, IN TO VISIT WITH PT. UPDATED HIM ON PT'S CONDITION AND PLAN OF CARE. DR SOTELO SPOKE WITH DAVID AFTER HIS REQUEST TO SPEAK WITH PT'S DOCTOR.
--- NOTE | 2018-12-23 15:01 | NUR ---
PT RETURNED FROM CT SCAN. TOLERATED PROCEDURE WELL.
--- NOTE | 2018-12-23 16:23 | NUR ---
PT UP TO CHAIR. POX 87% ON 50% VENTURI. PT STATES " I FEEL SO MUCH BETTER THAN THIS MORNING."
--- NOTE | 2018-12-23 18:52 | NUR ---
CHART CHECK COMPLETE.
--- NOTE | 2018-12-23 19:25 | NUR ---
PT RESTING IN BED. AOX3. SHE IS SHIVERING. TEMP 98.6. COMFORT MEASURES TAKEN AND PO TYLENOL AROUND THE CLOCK ORDERED. PULSE OX 86-93% ON VENTURI MASK. RESP DEPT TO PLACE ON BIPAP SOON HER AEROSOL TREATMENT IS DONE.
--- NOTE | 2018-12-23 19:29 | NUR ---
PLACED ON BIPAP. PULSE OX 95%.
--- NOTE | 2018-12-23 20:07 | NUR ---
PT DOZING. ON BIPAP. RR 24/MIN. PULSE OX 97%.
--- NOTE | 2018-12-23 20:46 | NUR ---
PT PUT TAPER MACHINE LIGHT TO STATE SHE WANTS BIPAP OFF. BIPAP REMOVED AND PLACED ON 50% VENTURI MASK. HR 110'S - 120'S. TEMP RECHECKED AND IS 101. PT IS MILDLY CONFUSED BUT COOPERATIVE. IN LINE OF SITE AND BED EXIT ALARM ACTIVATED. DR KELLY HERE AND UPDATED.
--- NOTE | 2018-12-23 21:42 | NUR ---
PT LAYING ON HER LT SIDE. SLEEPING. RR LOW 20'S. HR 110'S. PULSE OX 93% ON VENTURI MASK. BODY RELAXED.
--- NOTE | 2018-12-23 22:01 | NUR ---
DR KELLY HERE AND NOTIFIED OF TEMP OF 101.3.
--- NOTE | 2018-12-23 23:04 | NUR ---
PT BACK ON BIPAP. MOTRIN WAS GIVEN AT 2238 ORDERED FOR TEMP.
[2018-12-24] VITALS: BP 105/66
--- NOTE | 2018-12-24 02:04 | NUR ---
PT SLEEPING. TOLERATING BIPAP. RR LOW 20'S, HR MID 90'S.
--- NOTE | 2018-12-24 03:00 | NUR ---
PT RECEIVED BREATHING TREATMENT AND TURNED TO LT SIDE. PT IS NOW SLEEPING WITH EVEN, UNLABORED RESPIRATIONS WHILE ON BIPAP.HR UPPER 80'S - 90'S.
[2018-12-24 05:51] LABS: BASO % 0.2 % (0.0-1.0); EOS # 0.1 10*3/uL (0.0-0.4); EOS % 0.4 % (1.0-4.0); HEMATOCRIT 30.3 % (37.0-47.0); HEMOGLOBIN 10.2 g/dl (12.0-16.0); LYMPH # 0.9 10*3/uL (1.3-4.4); LYMPH % 4.8 % (27.0-41.0); MEAN CELL VOLUME 92.1 fl (81.0-99.0); MEAN CORPUSCULAR HGB CONC 33.7 g/dl (33.0-37.0); MEAN PLATELET VOLUME 10.4 fl (9.6-12.3); MONO # 0.9 10*3/uL (0.1-1.0); MONO % 4.6 % (3.0-9.0); NEUT # 16.9 10*3/uL (2.3-7.9); NEUT % 89.3 % (47.0-73.0); PLATELET COUNT AUTOMATED 180 10*3/uL (130-400); RED BLOOD COUNT 3.29 10*6/uL (4.10-5.10); RED CELL DISTRI WIDTH 14.1 % (0-14.5)
[2018-12-24 05:58] LABS: ALBUMIN 1.8 gm/dl (3.1-4.5); BUN 9 mg/dl (7-24); CHLORIDE 109 mmol/L (98-107); CREATININE 0.58 mg/dL (0.55-1.02); PHOSPHOROUS 2.3 mg/dL (2.5-4.9); POTASSIUM 3.3 mmol/L (3.5-5.1); SGOT/AST 57 IU/L (3-35); SGPT/ALT 51 U/L (12-78); SODIUM 140 mmol/L (136-145)
[2018-12-24 06:00] LABS: ALKALINE PHOSPHATASE 99 U/L (45-117); TOTAL PROTEIN 5.6 gm/dL (6.4-8.2)
--- NOTE | 2018-12-24 07:45 | NUR ---
SITTING STRAIGHT UP IN BED. RESPIRATORY RATE 36 AND STRUGGLING TO BREATHE. PULSE OX 79% ON VENTURI MASK 50%. COARSE RALES HEARD IN POSTERIOR AND MID BASES. COOK DRAINING CLEAR YELLOW URINE. RESPIRATORY HERE TO DO AN ABG. DR. RODRIGUEZ HERE ON FLOOR. ATTEMPTED TO CALL BUT NO ANSWER.
[2018-12-24 07:58] LABS: ABG BASE EXCESS -2.1 mmol/L (-2.0-2.0); ABG HCO3 20.8 mmol/l (22-26); ABG O2 SATURATION 90.8 % (95-97); ARTERIAL BLOOD GAS PCO2 30.5 mmHg (35-45); ARTERIAL BLOOD GAS PH 7.447 (7.35-7.45)
[2018-12-24 08:00] VITALS: BP 108/69
--- NOTE | 2018-12-24 08:00 | NUR ---
CXR DONE AT BEDSIDE. LASIX 40MG IV GIVEN ORDERED
--- NOTE | 2018-12-24 10:30 | NUR ---
DR. KYLE HERE AND UPDATED ON PATIENT'S LABS AND CXR.
--- NOTE | 2018-12-24 10:55 | NUR ---
HERE AND UPDATED ON PATIENT'S CONDITION.
[2018-12-24 12:00] VITALS: BP 107/71
--- NOTE | 2018-12-24 14:00 | NUR ---
UP TO BEDSIDE COMMODE FOR LARGE LOOSE GREEN BM. BED AND BATH DONE.
[2018-12-24 16:00] VITALS: BP 96/64
--- NOTE | 2018-12-24 19:06 | NUR ---
CHART CHECK COMPLETE.
--- NOTE | 2018-12-24 19:50 | NUR ---
WITH ASSISTANCE OF RESPIRATORY, PT REMOVED FROM BIPAP TO VENTURI FOR ORAL CARE AND TO TAKE PO MEDICATIONS. SHE IS ALERT AND ORIENTED, BUT TACHYPNEIC AT 39/MIN, TACHYCARDIC AT 125/MIN, AND HYPOXIC AT 79%. RELAXATION/DEEP BREATHING EXERCISES WITH SUPPLEMENTAL O2 AND REPLACED ON BIPAP. SHE RECOVERED AND IS NOW 97%, RR 30'S, AND HR 110/MIN.
[2018-12-24 20:00] VITALS: BP 159/80
--- NOTE | 2018-12-24 21:28 | NUR ---
SPOKE WITH DR RODRIGUEZ VIA TELEPHONE. UPDATED ON PT'S CONDITION. PLAN OF CARE DISCUSSED.
--- NOTE | 2018-12-24 22:22 | NUR ---
NOTIFIED DR KELLY OF PT REQUEST FOR SOMETHING TO RELAX HER. CONDITION REVIEWED. ORDERS RECEIVED.
--- NOTE | 2018-12-24 22:40 | NUR ---
MEDICATED WITH ATIVAN ORDERED. PT AWAKE AND ANXIOUS. WANTING BIPAP OFF TO DRINK LIQUIDS. RR UPPER 40'S, PULSE OX UPPER 80'S.. ENCOURAGED PT TO SLOW BREATHING RATE AND THAT WE ARE UNABLE TO REMOVE BIPAP AT THIS TIME. PT DIURESING FROM LASIX. WILL MONITOR FOR EFFECTIVENESS OF ATIVAN.
--- NOTE | 2018-12-24 23:10 | NUR ---
WITH ASSISTANCE OF RESP DEPT, PT WAS GIVEN PO MEDS AND WATER. PULSE OX WAS 79% FOR THIS VERY SHORT PERIOD OF TIME AND PT TACHYPNEIC AT 50 BPM. RETURNED TO BIPAP, POSITION OF COMFORT. HR NOW 11//MIN, RR 36/MIN AND PULSE OX 92%. SHE STATES ATIVAN "HAS MADE ME MORE COMFORTABLE, THANK YOU."
[2018-12-25] VITALS (33 sets, daily range): BP systolic 63–119; BP diastolic 40–75
--- NOTE | 2018-12-25 00:34 | NUR ---
VERY CLOSE OBSERVATION OF PT CONTINUES. SHE AWAKENS EASILY TO VERBAL STIMULI, HR LOW 100'S, PULSE OX 92-94%, RR REMAINS UPPER 30'S - 40'S. HER MENTATION IS UNCHANGED. SHE CONTINUES TO RESPOND APPROPRIATELY AND ADDRESS ME BY MY NAME.
--- NOTE | 2018-12-25 01:21 | NUR ---
PT AWAKE, ALERT AND ORIENTED. ASSISTED TO POSITION OF COMFORT.
--- NOTE | 2018-12-25 02:19 | NUR ---
PT APPEARS TO BE SLEEPING. HR 90'S. RR 30'S - LOW 40'S. PULSE OX LOW 90'S.
--- NOTE | 2018-12-25 03:29 | NUR ---
PT SLEEPS ON HER RT SIDE. HR LOW 90'S, RR MID 30.'S. SKIN W/D. BODY RELAXED. PULSE OX 96% ON BIPAP.
[2018-12-25 05:33] LABS: ALBUMIN 1.8 gm/dl (3.1-4.5); ALKALINE PHOSPHATASE 102 U/L (45-117); BUN 16 mg/dl (7-24); CHLORIDE 104 mmol/L (98-107); CREATININE 0.73 mg/dL (0.55-1.02); POTASSIUM 3.2 mmol/L (3.5-5.1); SGOT/AST 49 IU/L (3-35); SGPT/ALT 42 U/L (12-78); SODIUM 140 mmol/L (136-145); TOTAL PROTEIN 5.7 gm/dL (6.4-8.2)
--- NOTE | 2018-12-25 06:13 | NUR ---
PT NATE. HR MID TO UPPER 90'S. RR 30'S.
[2018-12-25 06:34] LABS: BASO % 0.2 % (0.0-1.0); EOS % 0.2 % (1.0-4.0); HEMATOCRIT 27.8 % (37.0-47.0); HEMOGLOBIN 9.6 g/dl (12.0-16.0); LYMPH # 1.1 10*3/uL (1.3-4.4); LYMPH % 6.7 % (27.0-41.0); MEAN CELL VOLUME 91.7 fl (81.0-99.0); MEAN CORPUSCULAR HGB 31.7 pg (27.0-31.0); MEAN CORPUSCULAR HGB CONC 34.5 g/dl (33.0-37.0); MEAN PLATELET VOLUME 10.6 fl (9.6-12.3); MONO % 6.2 % (3.0-9.0); NEUT % 85.8 % (47.0-73.0); PLATELET COUNT AUTOMATED 202 10*3/uL (130-400); RED BLOOD COUNT 3.03 10*6/uL (4.10-5.10); RED CELL DISTRI WIDTH 14.4 % (0-14.5); WHITE BLOOD COUNT 16.3 10*3/uL (4.8-10.8)
[2018-12-25 07:59] LABS: ABG BASE EXCESS 1.8 mmol/L (-2.0-2.0); ABG O2 SATURATION 94.5 % (95-97); ARTERIAL BLOOD GAS PCO2 35.2 mmHg (35-45); ARTERIAL BLOOD GAS PH 7.466 (7.35-7.45); ARTERIAL BLOOD GAS PO2 68.5 mmHg (80-90)
--- NOTE | 2018-12-25 08:00 | NUR ---
PATIENT POX 98% ON BIPAP 16/07.O2 55% PATIENT TAKEN OFF BIPAP TO GIVE MEDICATIONS AND PATIENT POX DECREASED TO 83% VERY QUICKLY. PLACED BACK ON BIPAP.
--- NOTE | 2018-12-25 09:39 | NUR ---
DISCUSSING WITH PATIENT THE NEED FOR INTUBATION. PATIENT IS VERY TEARY EYED AND ANXIOUS. ORDER RECEIVED FOR ONE TIME DOSE IV ATIVAN. MEDICATED WITH ATIVAN 0.5MG IV PER ORDER.
--- NOTE | 2018-12-25 09:49 | NUR ---
SPEECH PATHOLOGY Nursing screen completed. There are no reports of dysphagia however patient's compromised respiratory status places her at risk. This dept. will be available for consult if needs arise. JEAN COELLO MSCCC-RN OCCUPATIONAL HEALTH
--- NOTE | 2018-12-25 11:00 | NUR ---
Firesetter in to see patient. She is currently on bipap. Discharge plan undecided. Hospitalist team currently in the room.
--- NOTE | 2018-12-25 13:05 | NUR ---
PATIENT INTUBATED BY . GIVEN 10 ETOMIDATE AND 100 SUCCS FOR SEDATION. #7.5 ETT 24 LIP. DIPRIVAN GTT STARTED. OGT INSERTED.
[2018-12-25 15:46] LABS: ABG BASE EXCESS 1.9 mmol/L (-2.0-2.0); ABG HCO3 26.3 mmol/l (22-26); ABG O2 SATURATION 98.7 % (95-97); ARTERIAL BLOOD GAS PCO2 41.6 mmHg (35-45); ARTERIAL BLOOD GAS PH 7.414 (7.35-7.45); ARTERIAL BLOOD GAS PO2 97.1 mmHg (80-90)
[2018-12-25 19:22] LABS: CREATININE 1.18 mg/dL (0.55-1.02); POTASSIUM 3.2 mmol/L (3.5-5.1)
[2018-12-25 19:59] LABS: ABG BASE EXCESS 3.8 mmol/L (-2.0-2.0); ABG HCO3 27.3 mmol/l (22-26); ABG O2 SATURATION 98.5 % (95-97); ARTERIAL BLOOD GAS PCO2 38.1 mmHg (35-45); ARTERIAL BLOOD GAS PH 7.468 (7.35-7.45)
[2018-12-26] VITALS (93 sets, daily range): BP systolic 80–123; BP diastolic 47–68
[2018-12-26 05:39] LABS: ALBUMIN 1.8 gm/dl (3.1-4.5); CREATININE 1.72 mg/dL (0.55-1.02); POTASSIUM 2.9 mmol/L (3.5-5.1)
[2018-12-26 06:39] LABS: HEMATOCRIT 28.3 % (37.0-47.0); HEMOGLOBIN 9.5 g/dl (12.0-16.0); MEAN CELL VOLUME 93.1 fl (81.0-99.0); MEAN CORPUSCULAR HGB 31.3 pg (27.0-31.0); MEAN CORPUSCULAR HGB CONC 33.6 g/dl (33.0-37.0); RED BLOOD COUNT 3.04 10*6/uL (4.10-5.10); RED CELL DISTRI WIDTH 14.9 % (0-14.5); WHITE BLOOD COUNT 12.8 10*3/uL (4.8-10.8)
[2018-12-26 06:41] LABS: PLATELET COUNT AUTOMATED 277 10*3/uL (130-400)
[2018-12-26 07:16] LABS: ABG BASE EXCESS 4.2 mmol/L (-2.0-2.0); ABG HCO3 27.6 mmol/l (22-26); ABG O2 SATURATION 96.8 % (95-97); ARTERIAL BLOOD GAS PH 7.475 (7.35-7.45)
[2018-12-26 07:26] LABS: ATYPICAL LYMPHS 1 % (0-0); PLATELET SUFFICIENCY NORMAL (NORMAL); TOTAL CELLS COUNTED 100 #CELLS; TOXIC GRANULATION SLIGHT
[2018-12-26 07:27] LABS: BURR CELLS FEW
--- NOTE | 2018-12-26 09:00 | NUR ---
Rail Crew Member in to see patient. She is currently intubated. Spoke with who is at the bedside. He states they just flew back from vacationing in [place]. He states she was sick the day before they left [place]. He is unsure of discharge planning at this time. Discussed LTAC vs SNF if needed. She lives at home with her . She is normally independent in her ADLs and ambulation. She sees Dunia Gray for her family physician and uses [facility] pharmacy.
--- NOTE | 2018-12-26 09:15 | NUR ---
PATIENT TO SURGERY FOR BRONCHOSCOPY.
--- NOTE | 2018-12-26 09:45 | NUR ---
PATIENT RETURNED FROM SURGERY.
--- NOTE | 2018-12-26 19:20 | NUR ---
CHART CHECK COMPLETE.
--- NOTE | 2018-12-26 20:01 | NUR ---
VERSED WAS GIVEN AT 1925 AND COMPLETE BATH AND BED LINEN CHANGE WAS DONE AT 1940. PT COUGHED REPEATEDLY. PROPOFOL WAS TITRATED UP TO 40 MICS AND REMAINS AT THAT RATE. VERSED AND PROPOL EFFECTIVE. OG PLACEMENT VERIFIED BY AIR BOLUS/AUSCULTATION OVER EPIGASTRIC AREA. NEW TUBE FEEDING BAG HUNG. LEVOPHED CONTINUES AT 6 MCG/MIN. VSS.
--- NOTE | 2018-12-26 22:07 | NUR ---
PT HAS HAD 3 LIQUID GREEN STOOLS TODAY. STOOL SPECIMEN COLLECTED, REQUIRED FORM COMPLETED, AND SPECIMEN SENT TO LAB ORDERED.
--- NOTE | 2018-12-26 22:09 | NUR ---
AT 2145 LEVOPHED WAS TITRATED TO 4 MICS/MIN....TOLERATING. MAP >65
--- NOTE | 2018-12-26 22:49 | NUR ---
VERSED GIVEN AT 2230 FOR RESTLESSNESS EFFECTIVE.
[2018-12-27] VITALS (72 sets, daily range): BP systolic 72–134; BP diastolic 36–68
--- NOTE | 2018-12-27 00:37 | NUR ---
VERSED GIVEN AT 0020 EFFECTIVE FOR RESTLESSNESS.
--- NOTE | 2018-12-27 03:42 | NUR ---
VERSED AT 0340 FOR RESTLESSNESS EFFECTIVE.
--- NOTE | 2018-12-27 05:02 | NUR ---
PT HAS TOLERATED TITRATION OF LEVOPHED TO 2 MCG/MIN SINCE 244.
[2018-12-27 05:25] LABS: CREATININE 2.16 mg/dL (0.55-1.02)
[2018-12-27 05:29] LABS: POTASSIUM 3.9 mmol/L (3.5-5.1)
--- NOTE | 2018-12-27 05:29 | NUR ---
VERSED AT 0520 FOR RESTLESSNESS/COUGHING/GAGGING.
[2018-12-27 06:07] LABS: HEMATOCRIT 27.5 % (37.0-47.0); MEAN CELL VOLUME 94.5 fl (81.0-99.0); MEAN CORPUSCULAR HGB 30.9 pg (27.0-31.0); MEAN CORPUSCULAR HGB CONC 32.7 g/dl (33.0-37.0); MEAN PLATELET VOLUME 9.9 fl (9.6-12.3); PLATELET COUNT AUTOMATED 262 10*3/uL (130-400); RED BLOOD COUNT 2.91 10*6/uL (4.10-5.10); RED CELL DISTRI WIDTH 15.5 % (0-14.5); WHITE BLOOD COUNT 9.4 10*3/uL (4.8-10.8)
[2018-12-27 07:03] LABS: BURR CELLS FEW; PLATELET SUFFICIENCY NORMAL (NORMAL); TOTAL CELLS COUNTED 100 #CELLS
[2018-12-27 07:05] LABS: ADENOVIRUS Negative (Negative); INFLUENZA A Negative (Negative); INFLUENZA B Negative (Negative); METAPNEUMOVIRUS Negative (Negative); PARAINFLUENZA 1 Negative (Negative); PARAINFLUENZA 2 Negative (Negative); PARAINFLUENZA 3 Negative (Negative); RHINOVIRUS Negative (Negative); RSV A Negative (Negative); RSV B Negative (Negative)
[2018-12-27 07:13] LABS: ABG BASE EXCESS 1.4 mmol/L (-2.0-2.0); ABG HCO3 25.8 mmol/l (22-26); ABG O2 SATURATION 98.5 % (95-97); ARTERIAL BLOOD GAS PCO2 41.9 mmHg (35-45); ARTERIAL BLOOD GAS PH 7.406 (7.35-7.45); ARTERIAL BLOOD GAS PO2 99.4 mmHg (80-90)
--- NOTE | 2018-12-27 09:00 | NUR ---
Employment Specialist/Program Manager in to see patient. Family is at the bedside. She is intubated. Discharge plan undecided at this time.
--- NOTE | 2018-12-27 10:17 | NUR ---
Nutritional Support Services Note: Pt with Dx of bilateral pneumonia. Ht.5'5 Wt.131#. Albumin is low at 1.8- protein calorie malnutrition noted. She requires 1800cal daily. [facility] at 40cc/hr providing pt with 1440cal daily. will continue to follow for advancment of diet to po intake. Ashlee Blank Rdn Ld
[2018-12-27 15:05] LABS: ACID FAST SPEC PROCESSING Concentration (.)
--- NOTE | 2018-12-27 18:35 | NUR ---
MEDICATED PT PER PRN ORDER WITH VERSED FOR PT'S INCREASED AGITATION.
--- NOTE | 2018-12-27 19:12 | NUR ---
CHART CHECK COMPLETE.
--- NOTE | 2018-12-27 19:49 | NUR ---
PT POSITIONED TO LT SIDE. HOB ELEVATED. OG PLACEMENT VERIFIED BY AIR BOLUS/AUSCULTATION OVER EPIGASTRIC AREA. TUBE FEEDINGS CONTINUE AT 30CC/HR AT PRESENT TIME....WILL ASSESS CLOSELY TO INCREASE RATE ORDERED AND EVALUATE TOLERATION. ETT REMAINS SECURE AND REMAINS NOTED AT 24CM AT LIP. SUCTIONED FOR MODERATE AMT ORAL SECRETIONS. ASSISTS VENT IN 20'S - 30'S. PROPOFOL GTT CONTINUES AT 50 MICS. PT AWAKENS TO VERBAL AND COUGHS/GAGS WITH TACTILE STIMULI ESPECIALLY REPOSITIONING Q2H AND PRN.
--- NOTE | 2018-12-27 19:56 | NUR ---
CORRECTION: ETT 22CM AT LIP, NOT 24.
--- NOTE | 2018-12-27 20:25 | NUR ---
VERSED AT 2000 FOR RESTLESSNESS AND COUGHING MILDLY EFFECTIVE.
--- NOTE | 2018-12-27 21:00 | NUR ---
PT INCONTINENT OF GREEN LIQUID STOOL. COMPLETE BATH AND BED LINEN CHANGE DONE.
--- NOTE | 2018-12-27 21:54 | NUR ---
LEVOPHED RESUMED RE: BP 72/36 (49) AT 8 MICS/MIN. VERSED GIVEN FOR RESTLESSNESS ALSO.
--- NOTE | 2018-12-27 22:45 | NUR ---
PT HAS BEEN TITRATED DOWN TO 2 MICS.
--- NOTE | 2018-12-27 23:38 | NUR ---
VERSED GIVEN AT 2320 EFFECTIVE FOR RESTLESSNESS.
--- NOTE | 2018-12-27 23:39 | NUR ---
30 CC RESIDUAL OBTAINED. PULMOCARE INCREASED TO 40CC/HR ORDERED.
[2018-12-28] VITALS (53 sets, daily range): BP systolic 76–149; BP diastolic 35–78
--- NOTE | 2018-12-28 01:20 | NUR ---
OLIVA CARE DONE FOR INCONTINENCE OF GREEN LIQUID STOOL, THEN REPOSITIONED.
--- NOTE | 2018-12-28 02:23 | NUR ---
LEVOPHED WAS TITRATED TO 3 MCG/MIN AT 0200 FOR 89/48 (63). THIS WAS EFFECTIVE PT BP NOW 103/58 (73).
--- NOTE | 2018-12-28 03:36 | NUR ---
VERSED AT 0300 EFFECTIVE.
[2018-12-28 06:12] LABS: HEMATOCRIT 27.3 % (37.0-47.0); HEMOGLOBIN 8.6 g/dl (12.0-16.0); MEAN CELL VOLUME 96.5 fl (81.0-99.0); MEAN CORPUSCULAR HGB 30.4 pg (27.0-31.0); MEAN CORPUSCULAR HGB CONC 31.5 g/dl (33.0-37.0); MEAN PLATELET VOLUME 9.7 fl (9.6-12.3); PLATELET COUNT AUTOMATED 255 10*3/uL (130-400); RED BLOOD COUNT 2.83 10*6/uL (4.10-5.10); RED CELL DISTRI WIDTH 15.5 % (0-14.5); WHITE BLOOD COUNT 10.2 10*3/uL (4.8-10.8)
[2018-12-28 06:45] LABS: ALBUMIN 1.7 gm/dl (3.1-4.5); CREATININE 2.15 mg/dL (0.55-1.02); POTASSIUM 4.7 mmol/L (3.5-5.1); TOTAL PROTEIN 5.9 gm/dL (6.4-8.2)
[2018-12-28 06:54] LABS: TOTAL CELLS COUNTED 100 #CELLS
[2018-12-28 06:55] LABS: PLATELET SUFFICIENCY NORMAL (NORMAL); SCHISTOCYTES FEW
--- NOTE | 2018-12-28 07:52 | NUR ---
DR. AGUIRRE NOTIFIED OF CONSULT.
[2018-12-28 08:26] LABS: ABG BASE EXCESS 0.6 mmol/L (-2.0-2.0); ABG HCO3 24.8 mmol/l (22-26); ARTERIAL BLOOD GAS PCO2 38.8 mmHg (35-45); ARTERIAL BLOOD GAS PH 7.417 (7.35-7.45)
--- NOTE | 2018-12-28 09:00 | NUR ---
Grab Setter in to see patient. She is currently intubated. Discharge plan undecided.
--- NOTE | 2018-12-28 09:15 | NUR ---
DR. KYLE HERE. SEDATION PLACED ON HOLD. 0920- PLACED ON C-PAP
[2018-12-28 10:47] LABS: URINE CREATININE RANDOM 52.2 mg/dL
[2018-12-28 11:45] LABS: ABG BASE EXCESS 1.1 mmol/L (-2.0-2.0); ABG HCO3 25.2 mmol/l (22-26); ABG O2 SATURATION 92.7 % (95-97); ARTERIAL BLOOD GAS PCO2 40.4 mmHg (35-45); ARTERIAL BLOOD GAS PH 7.411 (7.35-7.45); ARTERIAL BLOOD GAS PO2 61.7 mmHg (80-90)
--- NOTE | 2018-12-28 12:30 | NUR ---
POINTING TO HER ABDOMEN. VOICES " DID MY BABY MAKE IT." REORIENTED TO SURROUNDINGS.
--- NOTE | 2018-12-28 12:49 | NUR ---
PATIENT EXTUBATED PER DR KYLE'S ORDERS, PLACED ON A 4L NC WITH CLEAR BREATH SOUNDS THROUGHOUT.SPO2 97%, HEART RATE 85. PATIENT TO VOCALIZE CLEARLY, WITH LITTLE RASPY VOICE.
--- NOTE | 2018-12-28 14:04 | NUR ---
MAP 82. LEVOPHED GTT TURNED OFF
--- NOTE | 2018-12-28 15:10 | NUR ---
ATTEMPTED TO PLACE PT ON BIPAP. PT STATES SHE CAN NOT WEAR THIS. BIPAP LEFT IN ROOM AT BEDSIDE.
--- NOTE | 2018-12-28 15:12 | NUR ---
REQUESTING TO BE SUCTIONED. STATES "I CAN'T BREATHE." PULSE OX 96% ON 4L NASAL CANNULA. ATTEMPTED TO PLACE ON BI-PAP BUT SHE STATES "I CAN'T WEAR THIS."
--- NOTE | 2018-12-28 15:15 | NUR ---
PT PLACED ON 35% VENTURI MASK. TOLERATING WELL.
--- NOTE | 2018-12-28 15:20 | NUR ---
Nutritional Support Services Note: Pt is extubated. Encourage po intake. Advance diet as tolerated. Will follow. Ashlee Warner
[2018-12-28 16:50] LABS: BILIRUBIN NEGATIVE (NEGATIVE); CLARITY CLEAR (CLEAR); COLOR YELLOW (YELLOW); GLUCOSE NEGATIVE (NEGATIVE)
[2018-12-28 16:51] LABS: BACTERIA 1+; BLOOD NEGATIVE (NEGATIVE); KETONE NEGATIVE (NEGATIVE); LEUKO ESTERASE NEGATIVE (NEGATIVE); NITRITE NEGATIVE (NEGATIVE); PH 5.5 (5.0-9.0); SPECIFIC GRAVITY <= 1.005 (1.005-1.030); UROBILINOGEN 0.2 E.U./dl (0.2-1.0)
--- NOTE | 2018-12-28 20:20 | NUR ---
1930 REPOSITIONED AND PULLED UP IN BED. HOB ELEVATED. SIDE RAILS UP X'S 2. CALL LIGHT IN REACH. ANXIOUS AND RESTLESS. PULSE OX 98% ON 35% VENTURI MASK. MOIST COUGH NOTED. RIJ MLC INTACT. COOK PATENT AND DRAINING CLEAR YELLOW URINE. TAKING SIPS H20. TOLERATING WELL.
--- NOTE | 2018-12-28 21:27 | NUR ---
PT REQUSETING SOMETHING FOR SLEEP. DR. SOTELO CALLED AND NOTIFIED.
--- NOTE | 2018-12-28 22:22 | NUR ---
2150 ATIVAN 0.5 MG IV GIVEN PER REQUSET FOR ANXIETY AND SLEEP. WILL MONTIOR. ASKING FOR WATER VERY FREQUENTLY. WEAK. STILL REMAINS CONFUSED TO TIME. 2219 EARLIER ATIVAN EFFECTIVE. RESTING IN BED WITH EYES CLOSED. TYLENOL GIVEN FOR EARLIER ALSO FOR C/O'S GENERALIZED DISCOMFORT. EFFECTIVE.
[2018-12-29] VITALS: BP 108/69
--- NOTE | 2018-12-29 00:42 | NUR ---
AWAKE. CALLS OUT FREQUENTLY FOR SIPS H20. VERY WEAK. DIFFICULTY SIPPING FROM STRAW. SIPPY CUP GIVEN.
--- NOTE | 2018-12-29 02:11 | NUR ---
0045 UNABLE TO USE SIPPY CUP WELL. 0200 RESTING IN BED WITH EYES CLOSED. APPEARS TO BE SLEEPING AT PRESENT.
[2018-12-29 04:00] VITALS: BP 123/73
--- NOTE | 2018-12-29 04:11 | NUR ---
SLEEPING AT INTERVALS. MOANING IN SLEEP. ASKS FOR SIPS H2O VERY FREQUENTLY.
--- NOTE | 2018-12-29 05:31 | NUR ---
TYLENOL 2 PO GIVEN FOR C/O'S H/A. MOIST COUGH CONT.DESATS WITH 02 OFF TO TAKE PILLS. O2 INCREASED TO 50% VENTURI MASK. WILL CONT TO MONITOR.
[2018-12-29 05:41] LABS: ALBUMIN 1.9 gm/dl (3.1-4.5); CREATININE 2.35 mg/dL (0.55-1.02); PHOSPHOROUS 4.3 mg/dL (2.5-4.9); TOTAL PROTEIN 5.8 gm/dL (6.4-8.2)
--- NOTE | 2018-12-29 06:20 | NUR ---
GIVING PT ICE CHIPS PO. RESTING IN BED IN HIGH FOWLERS POSITION. PULSE OX 94% ON 50% VENTURI MASK. EARLIER TYLENOL SL EFFECTIVE. CONT TO MOAN AT INTERVALS. RIJ MLC INTACT. JOEY PATENT. CONDITION SERIOUS.
[2018-12-29 06:59] LABS: HEMATOCRIT 27.2 % (37.0-47.0); HEMOGLOBIN 8.7 g/dl (12.0-16.0); MEAN CELL VOLUME 96.8 fl (81.0-99.0); MEAN PLATELET VOLUME 10.1 fl (9.6-12.3); PLATELET COUNT AUTOMATED 256 10*3/uL (130-400); RED BLOOD COUNT 2.81 10*6/uL (4.10-5.10); RED CELL DISTRI WIDTH 15.1 % (0-14.5); WHITE BLOOD COUNT 13.7 10*3/uL (4.8-10.8)
[2018-12-29 07:26] LABS: BASOPHILS 1 % (0-1); PLATELET SUFFICIENCY NORMAL (NORMAL); TOTAL CELLS COUNTED 100 #CELLS; TOXIC GRANULATION MODERATE
[2018-12-29 07:27] LABS: BURR CELLS FEW
[2018-12-29 08:00] VITALS: BP 160/84
--- NOTE | 2018-12-29 09:00 | NUR ---
Marine Steward in to see patient. Staff in room assisting patient at this time. Discharge plan undecided.
[2018-12-29 09:06] LABS: CREATININE,URINE 20.8 mg/dL (Not Estab.); MICRO ALBUMIN/CRE RATIO 26.9 (0.0-30.0)
--- NOTE | 2018-12-29 09:30 | NUR ---
RESTLESS, WANTS TO GET OUT OF BED. PLACED UP INTO CHAIR WITH 2 ASSIST. PLACED ON HIGH FLOW NASAL CANNULA 6L. PULSE OX 92-94%
--- NOTE | 2018-12-29 11:00 | NUR ---
Line Production Cook in to see patient. She is sitting up in her bedside chair. Staff is assisting with breathing. Discharge plan undecided.
[2018-12-29 11:19] LABS: ABG BASE EXCESS 0.6 mmol/L (-2.0-2.0); ABG HCO3 23.7 mmol/l (22-26); ABG O2 SATURATION 95.1 % (95-97); ARTERIAL BLOOD GAS PCO2 33.6 mmHg (35-45); ARTERIAL BLOOD GAS PH 7.462 (7.35-7.45); ARTERIAL BLOOD GAS PO2 73.1 mmHg (80-90)
[2018-12-29 12:00] VITALS: BP 120/69
[2018-12-29 16:00] VITALS: BP 109/67
--- NOTE | 2018-12-29 17:15 | NUR ---
PULSE OX 97% ON 5L NASAL CANNULA. TITRATED DOWN TO 4L NASAL CANNULA.
--- NOTE | 2018-12-29 19:55 | NUR ---
ASSUMED CARE FROM JALEESA DURON RN. PATIENT IS SLEEPY, BUT AROUSES EASILY UPON ASSESSMENT. PATIENT REPORTS WEAKNESS AND DECREASED APPETITE. PATIENT DENIES PAIN OR SHORTNESS OF BREATHE WITH HIFLOW NASAL CANNULA AT 5LPM APPLIED, SINUS TACHYCARDIA ON THE MONITOR. PATIENT HAS DYSPNEA ON EXERTION. CALL LIGHT WITHIN REACH, SEE ASSESSMENT.
[2018-12-29 20:00] VITALS: BP 117/70
--- NOTE | 2018-12-29 20:27 | NUR ---
DR. KYLE UPDATED ABOUT PATIENT CONDITION AND CURRENT URINARY OUTPUT. NO FURTHER ORDERS GIVEN AT THIS TIME.
[2018-12-30] VITALS: BP 122/65
[2018-12-30 04:00] VITALS: BP 127/64
[2018-12-30 07:28] LABS: BASO # 0.1 10*3/uL (0.0-0.1); BASO % 0.4 % (0.0-1.0); EOS # 0.2 10*3/uL (0.0-0.4); EOS % 1.5 % (1.0-4.0); HEMOGLOBIN 8.8 g/dl (12.0-16.0); LYMPH # 0.8 10*3/uL (1.3-4.4); LYMPH % 5.9 % (27.0-41.0); MEAN CORPUSCULAR HGB 30.4 pg (27.0-31.0); MEAN CORPUSCULAR HGB CONC 32.6 g/dl (33.0-37.0); MEAN PLATELET VOLUME 9.5 fl (9.6-12.3); MONO # 0.7 10*3/uL (0.1-1.0); MONO % 4.8 % (3.0-9.0); NEUT # 11.5 10*3/uL (2.3-7.9); NEUT % 85.4 % (47.0-73.0); PLATELET COUNT AUTOMATED 260 10*3/uL (130-400); RED BLOOD COUNT 2.89 10*6/uL (4.10-5.10); RED CELL DISTRI WIDTH 14.8 % (0-14.5); WHITE BLOOD COUNT 13.5 10*3/uL (4.8-10.8)
[2018-12-30 07:45] LABS: CREATININE 2.58 mg/dL (0.55-1.02); POTASSIUM 4.5 mmol/L (3.5-5.1)
[2018-12-30 08:00] VITALS: BP 115/46
[2018-12-30 08:12] LABS: MEAN CELL VOLUME 93.4 fl (81.0-99.0)
--- NOTE | 2018-12-30 10:46 | NUR ---
JOEY YO PER ORDER PATIENT TOLERATED WELL NOLAN OMALLEY SN OVCT SAMIRMANAS VAIL RN BSN
[2018-12-30 12:00] VITALS: BP 109/49
[2018-12-30 16:00] VITALS: BP 88/48
--- NOTE | 2018-12-30 19:51 | NUR ---
PATIENT RESTING ON THEIR LEFT SIDE IN BED. PATIENT REPORTS RIGHT LEG FEELING SORE/TIRED FROM OVERUSE GETTING UP TO BSC. PATIENT DENIES ANY PAIN, DISCOMFORT OR SHORTNESS OF BREATHE UPON ASSESSMENT. PATIENT IS ON 4LNC, NSR ON THE MONITOR. CALL LIGHT WITHIN REACH. SEE ASSESSMENT.
[2018-12-30 20:00] VITALS: BP 96/56
[2018-12-30 20:37] LABS: BACTERIA 1+; EPITHELIAL CELLS 16-20; YEAST 1+
[2018-12-31] VITALS: BP 95/58
[2018-12-31 04:00] VITALS: BP 107/59
[2018-12-31 06:42] LABS: BASO % 0.4 % (0.0-1.0); EOS # 0.2 10*3/uL (0.0-0.4); EOS % 1.9 % (1.0-4.0); HEMATOCRIT 24.2 % (37.0-47.0); LYMPH # 1.2 10*3/uL (1.3-4.4); LYMPH % 12.3 % (27.0-41.0); MEAN CELL VOLUME 94.2 fl (81.0-99.0); MEAN CORPUSCULAR HGB 31.1 pg (27.0-31.0); MEAN CORPUSCULAR HGB CONC 33.1 g/dl (33.0-37.0); MEAN PLATELET VOLUME 9.4 fl (9.6-12.3); MONO # 1.2 10*3/uL (0.1-1.0); MONO % 12.5 % (3.0-9.0); NEUT # 6.9 10*3/uL (2.3-7.9); NEUT % 71.6 % (47.0-73.0); PLATELET COUNT AUTOMATED 240 10*3/uL (130-400); RED BLOOD COUNT 2.57 10*6/uL (4.10-5.10); RED CELL DISTRI WIDTH 14.6 % (0-14.5); WHITE BLOOD COUNT 9.7 10*3/uL (4.8-10.8)
[2018-12-31 07:02] LABS: CREATININE 2.6 mg/dL (0.55-1.02); PHOSPHOROUS 4.8 mg/dL (2.5-4.9); POTASSIUM 4.2 mmol/L (3.5-5.1); TOTAL PROTEIN 5.8 gm/dL (6.4-8.2)
[2018-12-31 08:00] VITALS: BP 112/71
--- NOTE | 2018-12-31 08:00 | NUR ---
Pt aksed if she wanted to come off the BiPap for the day. She asked to stay on. She wasnt ready to get up yet. Pt still on BiPap 40%.
[2018-12-31 12:00] VITALS: BP 120/59
[2018-12-31 16:00] VITALS: BP 107/64
--- NOTE | 2018-12-31 19:12 | NUR ---
CHART CHECK COMPLETE.
--- NOTE | 2018-12-31 19:51 | NUR ---
ASSESSMENT COMPLETE. VSS. PT IS ALERT AND ORIENTED X 3. NO COMPLAINTS OFFERED.
[2018-12-31 20:00] VITALS: BP 97/54
[2019-01-01] VITALS (7 sets, daily range): BP systolic 85–111; BP diastolic 39–63
--- NOTE | 2019-01-01 01:41 | NUR ---
ASSISTED UP TO BSC TO VOID AND THEN BACK TO BED.
[2019-01-01 05:35] LABS: CREATININE 2.69 mg/dL (0.55-1.02); POTASSIUM 3.9 mmol/L (3.5-5.1)
[2019-01-01 05:57] LABS: BASO # 0.1 10*3/uL (0.0-0.1); BASO % 0.5 % (0.0-1.0); EOS # 0.2 10*3/uL (0.0-0.4); HEMATOCRIT 24.1 % (37.0-47.0); HEMOGLOBIN 7.8 g/dl (12.0-16.0); LYMPH # 1.6 10*3/uL (1.3-4.4); LYMPH % 13.9 % (27.0-41.0); MEAN CELL VOLUME 95.6 fl (81.0-99.0); MEAN CORPUSCULAR HGB CONC 32.4 g/dl (33.0-37.0); MEAN PLATELET VOLUME 9.7 fl (9.6-12.3); MONO # 1.3 10*3/uL (0.1-1.0); MONO % 11.7 % (3.0-9.0); NEUT # 8.1 10*3/uL (2.3-7.9); NEUT % 70.8 % (47.0-73.0); PLATELET COUNT AUTOMATED 251 10*3/uL (130-400); RED BLOOD COUNT 2.52 10*6/uL (4.10-5.10); RED CELL DISTRI WIDTH 14.9 % (0-14.5); WHITE BLOOD COUNT 11.4 10*3/uL (4.8-10.8)
--- NOTE | 2019-01-01 11:00 | NUR ---
Mission Planner in to see patient. She is visiting with her sister at the bedside. Discussed short term SNF and inpatient rehab at [facility]. She refuses. She states she is going to have her friend from [place] come and stay with her and her is home. Her children are across the street. Discussed home health care services and she is agreeable. When given a list of agencies she chose [facility]. When medically stable she will be discharged to home with [facility] services.
--- NOTE | 2019-01-01 13:51 | NUR ---
PT ASSISTED OUT OF BED IN TO RECLINER CHAIR WITH MINIMAL 1 ASSIST.
--- NOTE | 2019-01-01 14:52 | NUR ---
PHYSICAL THERAPY Patient evaluated in ICCU, full evaluation to follow. Continue with PT as per plan of care with fall, 02 and acute debility precautions. MAy require in-patient rehab. PAtient is high complexity via chart review, tests and evaluation: 20773. Thank you for this referral. Payal New,PT
--- NOTE | 2019-01-01 15:56 | NUR ---
Occupational Therapy evaluation completed in ICCU with full eval to follow. Precautions include fall risk,acute debility, generalized weakness, new O2 use,moderate complexity level 49009 via chart review, testing and evaluation. Recommend OT per pOC and inpatient rehab to enable return home after lengthly ICCU and complicated pneumonia. Thank you for this referral. Adelina Benitez OTR/l
--- NOTE | 2019-01-01 17:35 | NUR ---
RIGHT IJ MLC REMOVED PER HOSPITAL PROTOCOL. PT TOLERATED WELL. LINE WITH TIP INTACT REMOVED WITHOUT INCIDENT.
--- NOTE | 2019-01-01 17:38 | NUR ---
Pt transfered to room 529 at this time via wheelchair.
--- NOTE | 2019-01-01 19:00 | NUR ---
PT AWAKE IN BED DURING BEDSIDE SHIFT REPORT. NO C/O VOICED. CALL LIGHT IN REACH.
[2019-01-02] VITALS: BP 113/47
--- NOTE | 2019-01-02 03:10 | NUR ---
24 HR chart check completed.
[2019-01-02 06:08] LABS: BASO % 0.2 % (0.0-1.0); EOS # 0.2 10*3/uL (0.0-0.4); EOS % 1.7 % (1.0-4.0); HEMATOCRIT 26.1 % (37.0-47.0); HEMOGLOBIN 8.4 g/dl (12.0-16.0); LYMPH # 1.2 10*3/uL (1.3-4.4); LYMPH % 9.3 % (27.0-41.0); MEAN CELL VOLUME 95.6 fl (81.0-99.0); MEAN CORPUSCULAR HGB 30.8 pg (27.0-31.0); MEAN CORPUSCULAR HGB CONC 32.2 g/dl (33.0-37.0); MEAN PLATELET VOLUME 9.4 fl (9.6-12.3); MONO # 0.8 10*3/uL (0.1-1.0); MONO % 6.7 % (3.0-9.0); NEUT # 10.1 10*3/uL (2.3-7.9); NEUT % 81.5 % (47.0-73.0); PLATELET COUNT AUTOMATED 262 10*3/uL (130-400); RED BLOOD COUNT 2.73 10*6/uL (4.10-5.10); RED CELL DISTRI WIDTH 14.6 % (0-14.5); WHITE BLOOD COUNT 12.5 10*3/uL (4.8-10.8)
[2019-01-02 06:15] LABS: ALBUMIN 2.1 gm/dl (3.1-4.5); CREATININE 2.63 mg/dL (0.55-1.02); PHOSPHOROUS 4.6 mg/dL (2.5-4.9); TOTAL PROTEIN 5.8 gm/dL (6.4-8.2)
[2019-01-02 08:00] VITALS: BP 134/52
--- NOTE | 2019-01-02 09:25 | NUR ---
PHYSICAL THERAPY Patient seen this am 1:1 for therapy visit and was sitting up EOB following breathing treatment upon therapist arrival. Patient presented without O2 while sitting there at rest per Respiratory therapist who had just completed her treatment. Patient SpO2 93% on RA while patient voices no new c/o's other than feeling generalized, global weakness from spending too much time in bed. Patient transfers sit to stand Min/CGA and ambulates UI APPLICATION DEVELOPER/CGA, demonstrating intital unsteady gait pattern with decreased stride. Patient was able to improve stride following v/c for relaxtion breathing and focus on task. Patient needed several standing rest breaks due to quick onset of fatigue and was placed on 2L O2 via NC due to drop in SpO2 to 85% per Respiratory therapist who was present for observation. Patient completed total 210 feet with v/c for purse lip breathing and was able to maintain SpO2 91-93% for remainder of gait ex on O2-2L. Patient returned to EOB sit for brief rest break and requested use of bathroom. Patient ambulated additional 15'x 2, completing safe toilet transfer with use of single handrail support, returning to EOB sit and remained with call light, tray table and telephone. Will continue per POC as tolerated, total treatment time 18 minutes. Jacob Marie, REAL ESTATE SUBAGENT
--- NOTE | 2019-01-02 11:20 | NUR ---
PT. ASSESSED FOR HOME O2. PULSE OX ON R/A AT REST 93%. HEART RATE 84, B/P 134/52. PT. AMBULATED IN THE REHMAN ON R/A, PULSE OX DECREASING TO 85%,HEART RATE 108. PT. PLACED ON 2L, O2 INCREASING TO 93% ON 2L, PT. CONTINUED TO WALK WITH 2L O2, PULSE OX MAINTAINED 91% TO 93% WITH AMBULATION. HEART RATE 97. PT. RETURNED TO ROOM, RESTING AT BEDSIDE WITH 2L, RECOVERY O2 97% ON 2L, HEART RATE 90, B/P 128/68. O2 REMOVED AND CONTINUED TO MONITOR PT. PULSE OX ON R/A AT REST 94% AND HEART RATE 91. RN AND DR. GUZMAN NOTIFIED.
[2019-01-02 12:00] VITALS: BP 132/56
--- NOTE | 2019-01-02 13:40 | NUR ---
OT NOTE Pt was seen this P.M. 1:1 for 15 minute OT session. Upon arrival pt was supine in bed. Pt identified by name and and had no complaints at this time. At rest on room air pt's SpO2 was 92% and heart rate 90 bpm. Pt transferred supine to sit EOB with SBA. Pt then donned 2L-O2 via NC for activity only. Functional mobility completed into the bathroom with Jono PERSONNEL MANAGER with occasional LOB to both R and L side that required modA to correct. There she transferred on/off standard commode with SBA. Pt then stood sink side while washing her hands and face with CGA for safety. throughout activity pt's SpO2 was 90% with heart rate of 102 bpm. Pt returned to the EOB where she transferred sit to supine with SBA. Pt was left supine in bed with call light in hand, tray table in place, and SpO2 94% on room air. Continue with rec D/C plan to inpatient rehab. MARIA C Monsalve/Garry
--- NOTE | 2019-01-02 13:45 | NUR ---
PHYSICAL THERAPY Patient seen this pm 1:1 for therapy visit and was supine in bed upon therapist arrival. Patient voices no new c/o's and present without O2 while resting. Patient use of continuous O2-2L via NC during all standing activities with SpO2 94%, HR 92 prior to treatment. Patient transfers supine to stand CGA and ambulates CROSSING FLAGMAN/CGA, 100'x 1, demonstrating slow, even stride and required standing rest break due to SOB with v/c for purse lip breathing technique. SpO2 drop to 90%, HR l02 bpm during gait ex as patient returned to supine in bed. Following several minute rest, patient SpO2 93%, HR 92 bpm without O2 with patient remaining in bed with call light, tray table and telephone. Will continue per POC as tolerated, total treatment time 14 minutes. Jacob Marie, UNDERWEAR WELTER
--- NOTE | 2019-01-02 15:30 | NUR ---
Deputy Program Manager in to see patient. Discussed home health care services and she is agreeable. When given a list of agencies she chose [facility]. Hospitalist nurse director notified.
[2019-01-02 16:00] VITALS: BP 119/78
--- NOTE | 2019-01-02 19:00 | NUR ---
PT AWAKE IN BED DURING BEDSIDE SHIFT REPORT. NO C/O VOICED. CALL LIGHT IN REACH.
[2019-01-02 20:00] VITALS: BP 102/68
[2019-01-03] VITALS: BP 103/44
--- NOTE | 2019-01-03 00:05 | NUR ---
24 HR chart check completed.
[2019-01-03 06:16] LABS: BASO # 0.1 10*3/uL (0.0-0.1); BASO % 0.5 % (0.0-1.0); EOS # 0.3 10*3/uL (0.0-0.4); EOS % 3.1 % (1.0-4.0); HEMATOCRIT 26.3 % (37.0-47.0); HEMOGLOBIN 8.4 g/dl (12.0-16.0); LYMPH # 1.5 10*3/uL (1.3-4.4); LYMPH % 14.8 % (27.0-41.0); MEAN CELL VOLUME 95.3 fl (81.0-99.0); MEAN CORPUSCULAR HGB 30.4 pg (27.0-31.0); MEAN CORPUSCULAR HGB CONC 31.9 g/dl (33.0-37.0); MEAN PLATELET VOLUME 9.3 fl (9.6-12.3); NEUT # 7.1 10*3/uL (2.3-7.9); PLATELET COUNT AUTOMATED 264 10*3/uL (130-400); RED BLOOD COUNT 2.76 10*6/uL (4.10-5.10); RED CELL DISTRI WIDTH 14.7 % (0-14.5); WHITE BLOOD COUNT 10.1 10*3/uL (4.8-10.8)
[2019-01-03 06:38] LABS: ALBUMIN 2.3 gm/dl (3.1-4.5); CREATININE 2.6 mg/dL (0.55-1.02); PHOSPHOROUS 4.4 mg/dL (2.5-4.9); POTASSIUM 3.8 mmol/L (3.5-5.1)
[2019-01-03 08:00] VITALS: BP 110/50
--- NOTE | 2019-01-03 08:59 | NUR ---
OT NOTE Attempted to see pt this A.M. for OT session and upon arrival pt was eating her breakfast. Will check back at a later time/date. MARIA C Monsalve/Garry
--- NOTE | 2019-01-03 09:00 | NUR ---
Dairy Laboratory Technician in to see patient. No new needs or request at this time. When medically stable she will be discharged to home with [facility] services.
[2019-01-03] MEDS ORDERED: PROAIR HFA8.5 GM INH (10:59)
[2019-01-03] MEDS ORDERED: LEVOFLOXACIN750 M2 PO (10:59)
[2019-01-03] MEDS ORDERED: OXYGEN NAS (11:00)
--- NOTE | 2019-01-03 11:32 | NUR ---
Faxed home health order to [facility]
[2019-01-03 12:00] VITALS: BP 115/60
--- NOTE | 2019-01-03 12:00 | NUR ---
SPOKE TO CRISTIAN AT HOSPITALIST OFFICE ASKING ABOUT O2 SCRIPT. SHE STATES SHE WILL LOOK FOR IT.
--- NOTE | 2019-01-03 13:00 | NUR ---
CALLED AND SPOKE WITH KARLENE RE: O2 SCRIPT. SHE STATES SHE FAXED IT TO REP OFFICE YESTERDAY AND IT WAS RECEIVED. SHE STATES SHE WILL REFAX IT. SPEEDY FROM [facility] NOTIFIED.
--- NOTE | 2019-01-03 14:30 | NUR ---
Discharge instructions reviewed with patient/family. Patient receptive and verbalizes understanding. Follow-up care arranged. Written instructions given to patient/family. DOUGLAS OLIVA
--- NOTE | 2019-01-03 15:00 | NUR ---
[facility] NOTIFIED O2 HASN'T ARRIVED YET. THEY WILL FOLLOW UP.
--- NOTE | 2019-01-03 16:40 | NUR ---
[facility] NOTIFIED AGAIN OF NO O2 DELIVERED TO PT YET. [facility] CALLED AND STATES [facility] WILL BE HERE SOON. THEY ARE ON THE WAY. PT NOTIFIED. PT GETTING UPSET.
--- NOTE | 2019-01-03 16:47 | NUR ---
O2 DELIVERED TO PT. PT WHEELED TO CAR BY STAFF.
--- NOTE | 2019-01-03 17:22 | NUR ---
PHYSICAL THERAPY CO-SIGN I approve of the Phyical Therapy notes written above. VINH ADLER PT
[2019-01-07] MEDS ORDERED: REGLAN10 M1 PO (17:15)
[2019-01-07] MEDS ORDERED: DOXYCYCLINE100 MG PO (17:15)
[2019-01-07] MEDS ORDERED: PROZAC40 M1 PO (17:24)
[2019-02-07 13:04] LABS: ACID FAST CULTURE Negative (.)
== END 2019-01-03 16:47 | disposition home health service (06) | DRG 871 ==
LOC: ED 14:41 → EDHOLD 17:02 → ICCU 17:02 → 5E 01-01 17:41
PROVIDERS: Emergency Medicine; Internal Medicine; Internal Medicine Critical Care Medicine; Internal Medicine Nephrology; Student in an Organized Health Care Education/Training Program; ADMIT Internal Medicine
PROC: 5A09357 Assistance with Respiratory Ventilation, Less than 24 Consecutive Hours, Continuous Positive Airway Pressure (ICD-10-PCS; principal; 2018-12-19)
PROC: B548ZZA Ultrasonography of Superior Vena Cava, Guidance (ICD-10-PCS; 2018-12-22)
PROC: 02HV33Z Insertion of Infusion Device into Superior Vena Cava, Percutaneous Approach (ICD-10-PCS; 2018-12-22)
PROC: 5A09357 Assistance with Respiratory Ventilation, Less than 24 Consecutive Hours, Continuous Positive Airway Pressure (ICD-10-PCS; 2018-12-23)
PROC: 5A09357 Assistance with Respiratory Ventilation, Less than 24 Consecutive Hours, Continuous Positive Airway Pressure (ICD-10-PCS; 2018-12-24)
PROC: 0BH17EZ Insertion of Endotracheal Airway into Trachea, Via Natural or Artificial Opening (ICD-10-PCS; 2018-12-25)
PROC: 5A1945Z Respiratory Ventilation, 24-96 Consecutive Hours (ICD-10-PCS; 2018-12-25)
PROC: 0BC18ZZ Extirpation of Matter from Trachea, Via Natural or Artificial Opening Endoscopic (ICD-10-PCS; 2018-12-26)
PROC: 0BC48ZZ Extirpation of Matter from Right Upper Lobe Bronchus, Via Natural or Artificial Opening Endoscopic (ICD-10-PCS; 2018-12-26)
PROC: 0BC88ZZ Extirpation of Matter from Left Upper Lobe Bronchus, Via Natural or Artificial Opening Endoscopic (ICD-10-PCS; 2018-12-26)
PROC: 0BC68ZZ Extirpation of Matter from Right Lower Lobe Bronchus, Via Natural or Artificial Opening Endoscopic (ICD-10-PCS; 2018-12-26)
PROC: 0BC98ZZ Extirpation of Matter from Lingula Bronchus, Via Natural or Artificial Opening Endoscopic (ICD-10-PCS; 2018-12-26)
PROC: 0BC78ZZ Extirpation of Matter from Left Main Bronchus, Via Natural or Artificial Opening Endoscopic (ICD-10-PCS; 2018-12-26)
PROC: 0BC38ZZ Extirpation of Matter from Right Main Bronchus, Via Natural or Artificial Opening Endoscopic (ICD-10-PCS; 2018-12-26)
PROC: 0BCB8ZZ Extirpation of Matter from Left Lower Lobe Bronchus, Via Natural or Artificial Opening Endoscopic (ICD-10-PCS; 2018-12-26)
PROC: 0BC58ZZ Extirpation of Matter from Right Middle Lobe Bronchus, Via Natural or Artificial Opening Endoscopic (ICD-10-PCS; 2018-12-26)
PROC: 5A09357 Assistance with Respiratory Ventilation, Less than 24 Consecutive Hours, Continuous Positive Airway Pressure (ICD-10-PCS; 2018-12-28)
DX: A41.9 Sepsis, unspecified organism (principal); R65.21 Severe sepsis with septic shock; J18.1 Lobar pneumonia, unspecified organism; J96.01 Acute respiratory failure with hypoxia; E87.1 Hypo-osmolality and hyponatremia; N17.9 Acute kidney failure, unspecified; N39.0 Urinary tract infection, site not specified; E46 Unspecified protein-calorie malnutrition; J93.9 Pneumothorax, unspecified; T17.590A Other foreign object in bronchus causing asphyxiation, initial encounter; T17.490A Other foreign object in trachea causing asphyxiation, initial encounter; E87.6 Hypokalemia; E87.5 Hyperkalemia; E55.9 Vitamin D deficiency, unspecified; F32.9 Major depressive disorder, single episode, unspecified; D63.8 Anemia in other chronic diseases classified elsewhere; J44.9 Chronic obstructive pulmonary disease, unspecified; E86.0 Dehydration; D64.9 Anemia, unspecified; X58.XXXA Exposure to other specified factors, initial encounter; Y93.89 Activity, other specified; Y92.89 Other specified places as the place of occurrence of the external cause; Z82.3 Family history of stroke; Z87.891 Personal history of nicotine dependence; Y99.8 Other external cause status; Z68.21 Body mass index [BMI] 21.0-21.9, adult

== ENCOUNTER → 2020-02-28 | Outpatient (CLI) | payer MEDICARE ==
[~2020-02-28] MED LIST: ATORVASTATIN CA80 M1 PO; CHOLESTEROL MED; DOXYCYCLINE100 MG PO; FLUOXETINE40 MG PO; LEVOFLOXACIN750 M2 PO; OXYGEN NAS; PROAIR HFA8.5 GM INH; PROZAC40 M1 PO; REGLAN10 M1 PO; VITAMIN D50000 UNIT PO
== END | disposition home or self-care (01) ==
LOC: MAMMO 08:30
DX: Z12.31 Encounter for screening mammogram for malignant neoplasm of breast (principal)

== ENCOUNTER → 2020-07-23 | Outpatient (CLI) | payer MEDICARE | END | disposition home or self-care (01) | LOC: US 07-22 07:11 | PROVIDERS: ATTEND Family Medicine | DX: N18.31 Chronic kidney disease, stage 3a (principal); K80.20 Calculus of gallbladder without cholecystitis without obstruction ==

== ENCOUNTER → 2020-07-31 | Outpatient (CLI) | payer MEDICARE ==
[2020-07-31 14:08] LABS: BILIRUBIN Negative (Negative); BLOOD Negative (Negative); CLARITY Clear (Clear); COLOR Yellow (Yellow); GLUCOSE Negative (Negative); KETONE Negative (Negative); LEUKO ESTERASE Negative (Negative); NITRITE Negative (Negative); SPECIFIC GRAVITY 1.025 (1.001-1.030); UROBILINOGEN 0.2 E.U./dl (0.0-1.0)
[2020-07-31 14:15] LABS: BACTERIA 1+; RBC 0-2 rbc/hpf (0-2)
[2020-07-31 14:16] LABS: MUCOUS TRACE
[2020-07-31 14:41] LABS: ALBUMIN 3.6 gm/dl (3.1-4.5); CREATININE 1.15 mg/dL (0.55-1.02); POTASSIUM 4.1 mmol/L (3.5-5.1); TOTAL PROTEIN 7.6 gm/dL (6.4-8.2)
[2020-07-31 14:49] LABS: PTH INTACT 50.8 pg/mL (18.5-88.0); VITAMIN D, 25-HYDROXY 97.9 ng/mL (30-100)
[2020-08-01 10:08] LABS: CREATININE,URINE 186.5 mg/dL (Not Estab.)
== END | disposition home or self-care (01) ==
LOC: LAB 13:38
PROVIDERS: ATTEND Internal Medicine Nephrology
DX: N18.31 Chronic kidney disease, stage 3a (principal); E55.9 Vitamin D deficiency, unspecified

== ENCOUNTER → 2020-11-20 | Outpatient (CLI) | payer MEDICARE ==
[2020-11-20 13:13] LABS: BASO # 0.1 10*3/uL (0.0-0.1); BASO % 0.7 % (0.0-1.0); EOS # 0.1 10*3/uL (0.0-0.4); EOS % 1.9 % (1.0-4.0); HEMATOCRIT 41.1 % (37.0-47.0); LYMPH # 1.7 10*3/uL (1.3-4.4); LYMPH % 24.4 % (27.0-41.0); MEAN CELL VOLUME 93.4 fl (81.0-99.0); MEAN CORPUSCULAR HGB 30.2 pg (27.0-31.0); MEAN CORPUSCULAR HGB CONC 32.4 g/dl (33.0-37.0); MEAN PLATELET VOLUME 9.3 fl (9.6-12.3); MONO # 0.5 10*3/uL (0.1-1.0); MONO % 6.9 % (3.0-9.0); NEUT # 4.6 10*3/uL (2.3-7.9); PLATELET COUNT AUTOMATED 308 10*3/uL (130-400); RED CELL DISTRI WIDTH 13.6 % (0-14.5); WHITE BLOOD COUNT 6.9 10*3/uL (4.8-10.8)
[2020-11-20 13:19] LABS: ALBUMIN 3.8 gm/dl (3.1-4.5); CREATININE 1.14 mg/dL (0.55-1.02); POTASSIUM 4.5 mmol/L (3.5-5.1)
[2020-11-20 13:25] LABS: THYROID STIM HORMONE (HS) 1.6 uIU/ml (0.358-4.75)
== END | disposition home or self-care (01) ==
LOC: LAB 11:37
PROVIDERS: ATTEND Nurse Practitioner Family
DX: E78.5 Hyperlipidemia, unspecified (principal); R10.9 Unspecified abdominal pain; Z86.19 Personal history of other infectious and parasitic diseases

== ENCOUNTER → 2020-11-27 | Outpatient (CLI) | payer MEDICARE | END | disposition home or self-care (01) | LOC: CT 08:00 | PROVIDERS: ATTEND Nurse Practitioner Family | DX: R91.8 Other nonspecific abnormal finding of lung field (principal) ==

== ENCOUNTER → 2020-12-25 | Outpatient (CLI) | payer MEDICARE | END | disposition home or self-care (01) | LOC: RESCLI 06:49 | PROVIDERS: ATTEND Internal Medicine Nephrology | DX: C79.31 Secondary malignant neoplasm of brain (principal); F32.9 Major depressive disorder, single episode, unspecified; E78.5 Hyperlipidemia, unspecified; R07.81 Pleurodynia; Z79.899 Other long term (current) drug therapy; Z87.891 Personal history of nicotine dependence ==